=== PATIENT | male | born 1970 | race Caucasian/White ===

== ENCOUNTER 2017-08-16 21:13 | Emergency (ER) | payer MEDICARE ==
[2017-08-16 21:22] VITALS: BP 140/85; PULSE 89; RESP 16; TEMP 97.3
[2017-08-16] MEDS ORDERED: IBUPROFEN 600 MG STARTER PACK 4 TAB BTL PO STA (21:41)
--- NOTE | 2017-08-16 21:48 | ED ---
General Adult HPI - General Chief complaint: Extremity Injury, Upper Stated complaint: wrist pain Time Seen by Provider: 08/16/17 21:21 Source: patient, RN notes reviewed Mode of arrival: ambulatory Limitations: no limitations - History of Present Illness Initial comments: Patient's a 47-year-old male who presents emergency room today with chief complaint of pain to the left wrist. States he woke up this morning discomfort to the left wrist area. Denies any specific injury or trauma. States felt some swollen earlier in the day. He states it has improved but with certain movements still causing him pain. Has not used for the pain other than ice which gave him some improvement. Patient denies any other complaints or symptoms. Denies ever having symptoms similar to this in the past. Denies any history of gout. Patient denies any recent fever, chills, shortness of breath, chest pain, numbness or tingling, headaches or visual changes, or any other complaints. - Related Data Home Medications Medication Instructions Recorded Confirmed Carvedilol 25 mg PO BID 07/05/14 04/05/16 HYDROcodone/APAP 5-325MG [Hendrix 1 tab PO BID PRN 07/05/14 04/05/16 5-325] Testosterone Cypionate 200 mg IM TH 07/05/14 04/05/16 [Depo-Testosterone] cloNIDine HCL [Catapres] 0.2 mg PO BID 07/05/14 04/05/16 Atorvastatin [Lipitor] 10 mg PO HS 10/17/14 04/05/16 Irbesartan 300 mg PO DAILY 03/11/16 04/05/16 Sildenafil Citrate [Sildenafil] 20 mg PO DAILY PRN 03/11/16 04/05/16 cloNIDine HCL [Catapres] 0.1 mg PO DAILY@1200 03/11/16 04/05/16 Aspirin EC [Ecotrin] 325 mg PO DAILY 04/05/16 04/05/16 Chlorthalidone [Hygroten] 50 mg PO DAILY 04/05/16 04/05/16 Spironolactone 50 mg PO DAILY 04/05/16 04/05/16 Previous Rx's Medication Instructions Recorded Ibuprofen [Motrin] 600 mg PO Q6HR PRN #30 day 08/16/17 Allergies Allergy/AdvReac Type Severity Reaction Status Date / Time Iodinated Contrast- Oral and AdvReac Severe Stopped Verified 04/05/16 11:30 IV Dye breathing [Iodinated Contrast Media - IV Dye] Iodine and Iodide Containing AdvReac Unknown Verified 04/05/16 11:30 Produc red dye AdvReac Unknown Verified 04/05/16 11:30 Review of Systems ROS Statement: Those systems with pertinent positive or pertinent negative responses have been documented in the HPI. ROS Other: All systems not noted in ROS Statement are negative. 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 [place] [facility] on 07/05/14 with chest wall syndrome, costalchondritis, atypical chest pain, pancreatitis. History of Any Multi-Drug Resistant Organisms: None Reported Past Surgical History: Cholecystectomy, Tonsillectomy Additional Past Surgical History / Comment(s): bilateral cataract removal with lens implants, R corneal transplant, uvulaectomy, nerve and muscle biopsy, lap band insertion and removal. Additional Past Anesthesia/Blood Transfusion Reaction / Comment(s): Pt states he is slow to awaken after anesthesia and has a severe headache. Past Psychological History: No Psychological Hx Reported Smoking Status: Never smoker Past Alcohol Use History: None Reported Past Drug Use History: None Reported - Past Family History Father Family Medical History: Coronary Artery Disease (CAD), Myocardial Infarction ([place] ) Additional Family Medical History / Comment(s): Father has had many coronary stents. Mother Family Medical History: Coronary Artery Disease (CAD), Myocardial Infarction ([place] ) General Exam - General Exam Comments Initial Comments: General: The patient is awake and alert, in no distress, and does not appear acutely ill. Neck: The neck is supple, there is no tenderness or JVD. Cardiovascular: There is a regular rate and rhythm. No murmur, rub or gallop is appreciated. Respiratory: Lungs are clear to auscultation, respirations are non-labored, breath sounds are equal. No wheezes, stridor, rales, or rhonchi. Musculoskeletal: Normal appearance of the left wrist and hand no deformity swelling or bruising. Shows full range of motion all directions. Surgeon movements of flexion and extension at the left thumb causes pain. Patient does have some tenderness extensor tendon. Sensations are intact. Pulses equal 2+. Strength is 5/5. Neurological: A&O x 3. CN II-XII intact, There are no obvious motor or sensory deficits. Coordination appears grossly intact. Speech is normal. Skin: Skin is warm and dry and no rashes or lesions are noted. Psychiatric: Normal mood and affect. Limitations: no limitations Course Vital Signs 08/16/17 21:19 Temperature 97.3 F L Pulse Rate 89 Respiratory 16 Rate Blood Pressure 140/85 O2 Sat by Pulse 99 Oximetry Medical Decision Making - Medical Decision Making Patient's symptoms are consistent with a tendinitis. He is advised to ice elevate the area and use anti-inflammatories. Will be started on ibuprofen here in emergency room. Disposition Clinical Impression: Left wrist tendinitis Disposition: HOME SELF-CARE Condition: Good Instructions: Tendinitis (ED) Additional Instructions: Please continue to ice elevate the affected area at least 4 times a day for 20 minutes at a time. Please use ibuprofen for pain as prescribed. Please use Harsha wrap for compression. Please do not sleep with Harsha wrap on. Please follow family doctor symptoms persist or return to emergency room symptoms increase worsen Prescriptions: Ibuprofen [Motrin] 600 mg PO Q6HR PRN #30 day PRN Reason: Pain Referrals: Arleth Goetz MD [Primary Care Provider] - 1-2 days Time of Disposition: 21:47
== END 2017-08-16 22:00 | disposition home or self-care (01) ==
LOC: EC 21:13
DX: M77.9 Enthesopathy, unspecified (principal); G60.9 Hereditary and idiopathic neuropathy, unspecified; I10 Essential (primary) hypertension; G47.30 Sleep apnea, unspecified; Z79.899 Other long term (current) drug therapy; Z91.041 Radiographic dye allergy status; Z91.048 Other nonmedicinal substance allergy status; Z99.89 Dependence on other enabling machines and devices
CPT/HCPCS: 99283

== ENCOUNTER 2017-08-24 16:20 | Observation (INO) | payer MEDICARE, OTHER ==
[2017-08-24] MEDS ORDERED: SODIUM CHLORIDE 0.9% 1,000 ML IV STA (16:52)
[2017-08-24] MEDS ORDERED: NITROGLYCERIN SL TABS 0.4 MG TAB SUBLINGUAL PRN ×2 (16:53→18:26)
--- NOTE | 2017-08-24 17:00 | ED ---
General Adult HPI <Darron Pierson - Last Filed: 08/24/17 18:30> - General Source: patient, RN notes reviewed Mode of arrival: wheelchair Limitations: no limitations <Bear De Jesus - Last Filed: 08/24/17 18:53> - General Chief complaint: Shortness of Breath Stated complaint: SOB, Low Blood Pressure Time Seen by Provider: 08/24/17 16:38 - History of Present Illness Initial comments: Patient is a 47-year-old male who presents emergency room today with a chief complaint of shortness breath and chest pain over the last 2 days. Patient is with the symptoms started yesterday. He does admit that he's been expressing some discomfort the left side of the chest that wraps around both right and left or worsen the left side. States that he feels somewhat short of breath at times. His pain comes and goes. Describes it as sharp pain located left side wrapping around to the chest wall. Patient denies anything that seems to make it better or worse. Denies any recent travel. Denies any leg pain or swelling. Patient denies any injury or trauma. Patient denies any recent fever , chills, abdominal pain, nausea or vomiting, numbness or tingling, dysuria or hematuria, constipation or diarrhea, headaches or visual changes, or any other complaints. (Bear De Jesus) - Related Data Home Medications Medication Instructions Recorded Confirmed Testosterone Cypionate 200 mg IM MO 07/05/14 08/24/17 [Depo-Testosterone] Aspirin 81 mg PO DAILY 08/24/17 08/24/17 Azelastine HCl [Optivar 0.05% 2 drop BOTH EYES BID 08/24/17 08/24/17 Ophth Soln] Irbesartan [Avapro] 75 mg PO HS 08/24/17 08/24/17 Spironolactone [Aldactone] 25 mg PO DAILY 08/24/17 08/24/17 Spironolactone [Aldactone] 50 mg PO HS 08/24/17 08/24/17 Allergies Allergy/AdvReac Type Severity Reaction Status Date / Time Iodinated Contrast- Oral and AdvReac Severe Stopped Verified 08/24/17 17:01 IV Dye breathing [Iodinated Contrast Media - IV Dye] Iodine and Iodide Containing AdvReac Unknown Verified 08/24/17 17:01 Produc red dye AdvReac Unknown Verified 08/24/17 17:01 Review of Systems ROS Other: All systems not noted in ROS Statement are negative. <Darron Pierson - Last Filed: 08/24/17 18:30> ROS Other: All systems not noted in ROS Statement are negative. <Bear De Jesus - Last Filed: 08/24/17 18:53> ROS Statement: Those systems with pertinent positive or pertinent negative responses have been documented in the HPI. 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 History of Any Multi-Drug Resistant Organisms: None Reported Past Surgical History: Cholecystectomy, Tonsillectomy Additional Past Surgical History / Comment(s): bilateral cataract removal with lens implants, R corneal transplant, uvulaectomy, nerve and muscle biopsy, lap band insertion and removal. Additional Past Anesthesia/Blood Transfusion Reaction / Comment(s): Pt states he is slow to awaken after anesthesia and has a severe headache. Past Psychological History: No Psychological Hx Reported Smoking Status: Never smoker Past Alcohol Use History: None Reported Past Drug Use History: None Reported - Past Family History Father Family Medical History: Coronary Artery Disease (CAD), Myocardial Infarction ([place] ) Additional Family Medical History / Comment(s): Father has had many coronary stents. Mother Family Medical History: Coronary Artery Disease (CAD), Myocardial Infarction ([place] ) <Bear De Jesus - Last Filed: 08/24/17 18:53> General Exam <Darron Pierson - Last Filed: 08/24/17 18:30> Limitations: no limitations <Bear De Jesus - Last Filed: 08/24/17 18:53> - General Exam Comments Initial Comments: General: The patient is awake and alert, in no distress, and does not appear acutely ill. Eye: Pupils are equal, round and reactive to light, extra-ocular movements are intact. No nystagmus. There is normal conjunctiva bilaterally. No signs of icterus. Ears, nose, mouth and throat: There are moist mucous membranes and no oral lesions. Neck: The neck is supple, there is no tenderness or JVD. Cardiovascular: There is a regular rate and rhythm. No murmur, rub or gallop is appreciated. Respiratory: Lungs are clear to auscultation, respirations are non-labored, breath sounds are equal. No wheezes, stridor, rales, or rhonchi. Musculoskeletal: Normal ROM, no tenderness. Strength 5/5. Sensation intact. Pulses equal bilaterally 2+. Neurological: A&O x 3. CN II-XII intact, There are no obvious motor or sensory deficits. Coordination appears grossly intact. Speech is normal. Skin: Skin is warm and dry and no rashes or lesions are noted. Psychiatric: Cooperative, appropriate mood & affect, normal judgment. (Bear De Jesus) Course <Darron Pierson - Last Filed: 08/24/17 18:30> <Bear De Jesus - Last Filed: 08/24/17 18:53> Vital Signs 08/24/17 08/24/17 16:24 17:33 Temperature 98.0 F 97.7 F Pulse Rate 102 H 89 Respiratory 20 16 Rate Blood Pressure 122/88 140/73 O2 Sat by Pulse 96 96 Oximetry - Reevaluation(s) Reevaluation #1: 08/24/17 18:30 I did personally do a [id number] evaluation patient did discuss findings with him and his . Patient does have some reproducibility to pain on the left but it does not appear to be totally consistent with his presentation. Patient will be admitted for further evaluation of chest pain. He does have a strong family history of the same. He does state he had a cardiac catheterization approximately 20 years ago. (Darron Pierson) EKG Findings - EKG Comments: EKG Findings:: EKG performed at 1637: Shows normal sinus rhythm at 94 bpm. VA interval 138. QRS 110. QT/QTc is 348/435. No acute changes. <Bear De Jesus - Last Filed: 08/24/17 18:53> Medical Decision Making - Lab Data Result diagrams: 08/24/17 17:12 08/24/17 17:12 <Darron Pierson - Last Filed: 08/24/17 18:30> - Lab Data Result diagrams: 08/24/17 17:12 08/24/17 17:12 <Bear De Jesus - Last Filed: 08/24/17 18:53> - Medical Decision Making The patient reexamined at this time shows no signs of distress. Patient's labs been reviewed and negative cardiac enzymes. EKG showing no acute changes. Patient will be admitted to the hospital for serial enzymes and consult from cardiology. Case was discussed with physician Dr. Fernández. (Bear De Jesus) - Lab Data Lab Results 08/24/17 08/24/17 08/24/17 Range/Units 17:12 17:12 17:12 WBC 8.5 (3.8-10.6) k/uL RBC 6.32 H (4.30-5.90) m/uL Hgb 18.0 H (13.0-17.5) gm/dL Hct 50.3 (39.0-53.0) % MCV 79.6 L (80.0-100.0) fL MCH 28.4 (25.0-35.0) pg MCHC 35.7 (31.0-37.0) g/dL RDW 12.7 (11.5-15.5) % Plt Count 209 (150-450) k/uL Neutrophils % 53 % Lymphocytes % 37 % Monocytes % 6 % Eosinophils % 1 % Basophils % 1 % Neutrophils # 4.5 (1.3-7.7) k/uL Lymphocytes # 3.1 (1.0-4.8) k/uL Monocytes # 0.6 (0-1.0) k/uL Eosinophils # 0.1 (0-0.7) k/uL Basophils # 0.1 (0-0.2) k/uL PT (9.0-12.0) sec INR (<1.2) APTT (22.0-30.0) sec D-Dimer (<0.60) mg/L FEU Sodium 139 (137-145) mmol/L Potassium 4.6 (3.5-5.1) mmol/L Chloride 105 (98-107) mmol/L Carbon Dioxide 23 (22-30) mmol/L Anion Gap 11 mmol/L BUN 16 (9-20) mg/dL Creatinine 1.00 (0.66-1.25) mg/dL Est GFR (CKD-EPI)AfAm >90 (>60 ml/min/1.73 sqM) Est GFR (CKD-EPI)NonAf 90 (>60 ml/min/1.73 sqM) Glucose 125 H (74-99) mg/dL Calcium 9.8 (8.4-10.2) mg/dL Magnesium 1.7 (1.6-2.3) mg/dL Total Bilirubin 0.5 (0.2-1.3) mg/dL AST 36 (17-59) U/L ALT 67 (21-72) U/L Alkaline Phosphatase 66 (38-126) U/L Total Creatine Kinase 358 H (55-170) U/L CK-MB (CK-2) 6.2 H* (0.0-2.4) ng/mL CK-MB (CK-2) Rel Index 1.7 Troponin I <0.012 (0.000-0.034) ng/mL NT-Pro-B Natriuret Pep pg/mL Total Protein 7.0 (6.3-8.2) g/dL Albumin 4.1 (3.5-5.0) g/dL 08/24/17 08/24/17 Range/Units 17:12 17:12 WBC (3.8-10.6) k/uL RBC (4.30-5.90) m/uL Hgb (13.0-17.5) gm/dL Hct (39.0-53.0) % MCV (80.0-100.0) fL MCH (25.0-35.0) pg MCHC (31.0-37.0) g/dL RDW (11.5-15.5) % Plt Count (150-450) k/uL Neutrophils % % Lymphocytes % % Monocytes % % Eosinophils % % Basophils % % Neutrophils # (1.3-7.7) k/uL Lymphocytes # (1.0-4.8) k/uL Monocytes # (0-1.0) k/uL Eosinophils # (0-0.7) k/uL Basophils # (0-0.2) k/uL PT 10.0 (9.0-12.0) sec INR 1.0 (<1.2) APTT 22.0 (22.0-30.0) sec D-Dimer 0.30 (<0.60) mg/L FEU Sodium (137-145) mmol/L Potassium (3.5-5.1) mmol/L Chloride (98-107) mmol/L Carbon Dioxide (22-30) mmol/L Anion Gap mmol/L BUN (9-20) mg/dL Creatinine (0.66-1.25) mg/dL Est GFR (CKD-EPI)AfAm (>60 ml/min/1.73 sqM) Est GFR (CKD-EPI)NonAf (>60 ml/min/1.73 sqM) Glucose (74-99) mg/dL Calcium (8.4-10.2) mg/dL Magnesium (1.6-2.3) mg/dL Total Bilirubin (0.2-1.3) mg/dL AST (17-59) U/L ALT (21-72) U/L Alkaline Phosphatase (38-126) U/L Total Creatine Kinase (55-170) U/L CK-MB (CK-2) (0.0-2.4) ng/mL CK-MB (CK-2) Rel Index Troponin I (0.000-0.034) ng/mL NT-Pro-B Natriuret Pep <11 pg/mL Total Protein (6.3-8.2) g/dL Albumin (3.5-5.0) g/dL Disposition <Darron Pierson - Last Filed: 08/24/17 18:30> Time of Disposition: 18:20 <Bear De Jesus - Last Filed: 08/24/17 18:53> Clinical Impression: Chest pain Disposition: ADMITTED IP TO THIS HOSP Condition: Stable
[2017-08-24 17:28] LABS: Basophils # (A) 0.1 k/uL (0-0.2); Basophils % (A) 1 %; Eosinophils # (A) 0.1 k/uL (0-0.7); Eosinophils % (A) 1 %; HCT 50.3 % (39.0-53.0); Lymphocytes # (A) 3.1 k/uL (1.0-4.8); Lymphocytes % (A) 37 %; MCH 28.4 pg (25.0-35.0); MCHC 35.7 g/dL (31.0-37.0); MCV 79.6 fL (80.0-100.0); Mean Platelet Volume 6.8; Monocytes # (A) 0.6 k/uL (0-1.0); Monocytes % (A) 6 %; Neutrophils # (A) 4.5 k/uL (1.3-7.7); Neutrophils % (A) 53 %; Platelet Count 209 k/uL (150-450); RBC 6.32 m/uL (4.30-5.90); RDW 12.7 % (11.5-15.5); WBC 8.5 k/uL (3.8-10.6)
[2017-08-24 17:35] LABS: D-Dimer 0.3 mg/L FEU (<0.60)
[2017-08-24 17:37] LABS: ALT 67 U/L (21-72); AST 36 U/L (17-59); Albumin 4.1 g/dL (3.5-5.0); Alkaline Phosphatase 66 U/L (38-126); Anion Gap 11 mmol/L; Blood Urea Nitrogen 16 mg/dL (9-20); Calcium 9.8 mg/dL (8.4-10.2); Carbon Dioxide 23 mmol/L (22-30); Chloride 105 mmol/L (98-107); Glucose 125 mg/dL (74-99); Magnesium 1.7 mg/dL (1.6-2.3); Potassium 4.6 mmol/L (3.5-5.1); Sodium 139 mmol/L (137-145); Total Bilirubin 0.5 mg/dL (0.2-1.3)
[2017-08-24 17:53] LABS: Creatine Kinase 358 U/L (55-170)
[2017-08-24 18:05] LABS: Troponin I <0.012 ng/mL (0.000-0.034)
--- NOTE | 2017-08-24 18:05 | XR ---
EXAMINATION: XR chest 2V DATE AND TIME: 08/24/2017 5:56 PM ORDERING PROVIDER: Bear De Jesus CLINICAL INDICATION: difficulty breathing TECHNIQUE: PA and lateral COMPARISON: 04/05/2016 DESCRIPTION: The lungs are clear. The pleural spaces are negative. The cardiac silhouette is not enlarged. The mediastinal and pleural silhouettes are unremarkable. The skeletal structures are intact without focal findings. The soft tissues are unremarkable. IMPRESSION: NO ACUTE PROCESS.
[2017-08-24 18:13] LABS: Creatine Kinase MB 6.2 ng/mL (0.0-2.4)
[2017-08-24] MEDS ORDERED: SODIUM CHLORIDE 0.9% 1,000 ML IV ONE (18:26)
[2017-08-24] MEDS ORDERED: ASPIRIN 81 MG PO STA (18:26)
[2017-08-24] MEDS ORDERED: HEPARIN SODIUM,PORCINE 5,000 UNIT/ML 1 ML VIAL IV ONE (18:26)
[2017-08-24] MEDS ORDERED: HEPARIN SOD,PORK IN 0.45% NACL 25,000 UNIT in 0.45% NACL 1 500ML.BAG IV SCH (18:30)
[2017-08-24 20:38] VITALS: BMI 46.0
[2017-08-24] MEDS: LOSARTAN 25 MG TAB PO SCH (23:46)
[2017-08-24] MEDS: SPIRONOLACTONE 25 MG TAB PO SCH (23:47)
[2017-08-25 00:14] LABS: Creatine Kinase 277 U/L (55-170)
[2017-08-25 00:28] LABS: Troponin I <0.012 ng/mL (0.000-0.034)
[2017-08-25 00:30] LABS: Creatine Kinase MB 5.1 ng/mL (0.0-2.4)
[2017-08-25] MEDS ORDERED: HEPARIN SODIUM,PORCINE 5,000 UNIT/ML 1 ML VIAL IV PRN (04:56)
[2017-08-25 07:02] LABS: Cholesterol 133 mg/dL (<200); HDL Cholesterol 30 mg/dL (40-60); LDL Cholesterol,Calculated 53 mg/dL (0-99); Triglycerides 250 mg/dL (<150)
[2017-08-25 07:11] LABS: Creatine Kinase 250 U/L (55-170)
[2017-08-25 07:22] LABS: Troponin I <0.012 ng/mL (0.000-0.034)
--- NOTE | 2017-08-25 09:32 | CONS ---
CONSULTATION CHIEF COMPLAINT: Chest pain. Darron is a 47-year-old gentleman with family history of premature coronary artery disease, who presented to hospital complaining of chest pain. He describes it as a sharp pericardial pain, mild to moderate intensity that has been going on over the last several days. He was concerned, came into the ER from where he got admitted. His chest discomfort has both typical and atypical components to it. Sometimes the chest discomfort gets worse with movement and deep inspiration. He had a D-dimer that is negative. He had 3 sets of troponins that are normal and EKGs that did not reveal ischemia and his lipid profile shows an LDL cholesterol of 53. PAST MEDICAL HISTORY: Significant for hypertension. CURRENT MEDICATIONS: Include Avapro, Aldactone, aspirin, Optivar, and testosterone. ALLERGIC: To IV DYE. FAMILY HISTORY: Significant for premature coronary artery disease. SOCIAL HISTORY: Negative for smoking, EtOH abuse, or drug abuse. REVIEW OF SYSTEMS: HEENT is unremarkable. CARDIAC: As described above. RESPIRATORY: As described above. GI: Negative. GENITOURINARY: Negative. ALLERGY: Negative. SKIN AND MUSCULOSKELETAL: Significant for arthritis. PSYCHOSOCIAL: Negative. ENDOCRINE: Negative. DERM: Negative. CONSTITUTIONAL: Negative. ONCOLOGICAL: Negative. LEGAL JOB TITLES: Negative. Rest of the system review is not relevant. PHYSICAL EXAM: Comfortable at rest. Vital signs are stable. There is no jugular venous distention. Carotid upstroke is normal. There is no bruit. Chest exam reveals good air entry bilaterally. Heart exam reveals first and second heart sounds. No gallop. No murmur. No rub. Abdomen is soft, nontender. Examination of extremities did not reveal any edema. Peripheral pulses are felt. LEGAL JOB TITLES exam did not reveal focal neurological deficits. EKG does not reveal acute ischemic changes. Cardiac enzymes have been negative. The hemoglobin is 18, platelet count is 209. Potassium is 4.6, creatinine is 1. ASSESSMENT: 1. Pericardial chest pain. 2. History of hypertension. PLAN: Myocardial infarction is ruled out. I am going to obtain a 2D echo on him to assess LV function, look at the pericardium in the aortic root and schedule him for a stress echo on Sunday. If this is negative, he will be discharged home. If this is abnormal, we will consider cardiac catheterization on him. MMODL / IJN: [id number] /
[2017-08-25] MEDS: SPIRONOLACTONE 25 MG TAB PO SCH ×2 (09:49→22:21)
[2017-08-25] MEDS: ASPIRIN 325 MG TAB PO SCH (09:49)
--- NOTE | 2017-08-25 11:09 | P.HPIM ---
History of Present Illness 47-year-old gentleman with history of sleep apnea and CVA in the past came in with complaints of chest pain started in the back wraps around the chest area along with the shortness of breath changes with the chest wall movement appears to be mostly musculoskeletal and back related. Patient has some EKG changes concerning for inferior wall myocardial infarction the past because of which cardiology is recommending stress test before his discharge. Patient chest pain has pretty competent because of which d-dimer was opted which was negative patient denied any fever chills cough chest x-ray essentially within normal limits patient is saturating well unsure of the exact etiology of shortness of breath his chest pain was 6/10 which completely resolved at this point of time not associated with food nonexertional nature. Review of Systems REVIEW OF SYSTEMS: CONSTITUTIONAL: No fever, no malaise, no fatigue. HEENT: No recent visual problems or hearing problems. Denied any sore throat. CARDIOVASCULAR: No orthopnea, PND, no palpitations, no syncope. PULMONARY: no cough, no hemoptysis. GASTROINTESTINAL: No diarrhea, no nausea, no vomiting, no abdominal pain. Normoactive bowel sounds. NEUROLOGICAL: No headaches, no weakness, no numbness. HEMATOLOGICAL: Denies any bleeding or petechiae. GENITOURINARY: Denies any burning micturition, frequency, or urgency. MUSCULOSKELETAL/RHEUMATOLOGICAL: Denies any joint pain, swelling, or any muscle pain. ENDOCRINE: Denies any polyuria or polydipsia. The rest of the 14-point review of systems is negative. Past Medical History Past Medical History: CVA/TIA, Hypertension Additional Past Medical History / Comment(s): Other HX: sleep apnea with bipap most nites, hereditary neuropathy with pressure palsey which causes intermittent numbness/tingling/palpitations-a variety of symptoms, 2 TIAs, atypical chest pain, was seen in [facility] ER on 07/05/14 with chest wall syndrome, costalchondritis, atypical chest pain, pancreatitis. History of Any Multi-Drug Resistant Organisms: None Reported Past Surgical History: Cholecystectomy, Tonsillectomy Additional Past Surgical History / Comment(s): bilateral cataract removal with lens implants, R corneal transplant, uvulaectomy, nerve and muscle biopsy, lap band insertion and removal. Additional Past Anesthesia/Blood Transfusion Reaction / Comment(s): Pt states he is slow to awaken after anesthesia and has a severe headache. Past Psychological History: No Psychological Hx Reported Additional Psychological History / Comment(s): Pt lives with and children. He is normally independent. Depending on the day he may need to use a cane. He drives a car. Smoking Status: Never smoker Past Alcohol Use History: None Reported Past Drug Use History: None Reported - Past Family History Father Family Medical History: Coronary Artery Disease (CAD), Myocardial Infarction (AL ) Additional Family Medical History / Comment(s): Father has had many coronary stents. Mother Family Medical History: Coronary Artery Disease (CAD), Myocardial Infarction (AL ) Medications and Allergies Home Medications Medication Instructions Recorded Confirmed Type Testosterone Cypionate 200 mg IM MO 07/05/14 08/24/17 History [Depo-Testosterone] Aspirin 81 mg PO DAILY 08/24/17 08/24/17 History Azelastine HCl [Optivar 0.05% 2 drop BOTH EYES BID 08/24/17 08/24/17 History Ophth Soln] Irbesartan [Avapro] 75 mg PO HS 08/24/17 08/24/17 History Spironolactone [Aldactone] 25 mg PO DAILY 08/24/17 08/24/17 History Spironolactone [Aldactone] 50 mg PO HS 08/24/17 08/24/17 History Allergies Allergy/AdvReac Type Severity Reaction Status Date / Time Iodinated Contrast- Oral and AdvReac Severe Stopped Verified 08/24/17 17:01 IV Dye breathing [Iodinated Contrast Media - IV Dye] Iodine and Iodide Containing AdvReac Unknown Verified 08/24/17 17:01 Produc red dye AdvReac Unknown Verified 08/24/17 17:01 Physical Exam Vitals: Vital Signs Temp Pulse Pulse Resp BP BP Pulse Ox 08/25/17 08:00 97.9 F 80 16 125/77 97 08/25/17 04:00 98.7 F 77 18 132/80 94 L 08/25/17 00:00 98.5 F 80 18 129/73 95 08/24/17 20:06 98.4 F 81 18 140/79 94 L 08/24/17 19:40 98.2 F 08/24/17 19:23 80 18 122/65 98 08/24/17 19:11 62 16 133/75 96 08/24/17 17:33 97.7 F 89 16 140/73 96 08/24/17 16:24 98.0 F 102 H 20 122/88 96 Intake and Output 08/24/17 08/25/17 08/25/17 22:59 06:59 14:59 Intake Total 117.667 Balance 117.667 Intake: Intake, IV Titration 117.667 Amount Heparin Sod,Pork in 0.45% 117.667 NaCl 25,000 unit In 0.45 % NaCl 1 500ml.bag @ 6. 681 UNITS/KG/HR 20 mls/hr IV .Q24H [facility] Rx#: [id number] Other: Voiding Method Toilet Toilet # Voids 1 1 Weight 149.685 kg 149.685 kg PHYSICAL EXAMINATION: GENERAL: The patient is alert and oriented x3, not in any acute distress. Well developed, well nourished. Obese HEENT: Pupils are round and equally reacting to light. EOMI. No scleral icterus. No conjunctival pallor. Normocephalic, atraumatic. No pharyngeal erythema. No thyromegaly. CARDIOVASCULAR: S1 and S2 present. No murmurs, rubs, or gallops. PULMONARY: Chest is clear to auscultation, no wheezing or crackles. ABDOMEN: Soft, nontender, nondistended, normoactive bowel sounds. No palpable organomegaly. MUSCULOSKELETAL: No joint swelling or deformity. EXTREMITIES: No cyanosis, clubbing, or pedal edema. NEUROLOGICAL: Gross neurological examination did not reveal any focal deficits. SKIN: No rashes. Results CBC & Chem 7: 08/24/17 17:12 08/24/17 17:12 Labs: Abnormal Lab Results - Last 24 Hours (Table) 08/24/17 08/24/17 08/24/17 Range/Units 17:12 17:12 17:12 RBC 6.32 H (4.30-5.90) m/uL Hgb 18.0 H (13.0-17.5) gm/dL MCV 79.6 L (80.0-100.0) fL Glucose 125 H (74-99) mg/dL Total Creatine Kinase 358 H (55-170) U/L CK-MB (CK-2) 6.2 H* (0.0-2.4) ng/mL Triglycerides (<150) mg/dL HDL Cholesterol (40-60) mg/dL 08/24/17 08/25/17 08/25/17 Range/Units 23:44 06:14 06:14 RBC (4.30-5.90) m/uL Hgb (13.0-17.5) gm/dL MCV (80.0-100.0) fL Glucose (74-99) mg/dL Total Creatine Kinase 277 H 250 H (55-170) U/L CK-MB (CK-2) 5.1 H* 5.0 H* (0.0-2.4) ng/mL Triglycerides 250 H (<150) mg/dL HDL Cholesterol 30 L (40-60) mg/dL Thrombosis Risk Factor Assmnt - Choose All That Apply Each Factor Represents 1 point: Age 41-60 years, Obesity (BMI >25) Thrombosis Risk Factor Assessment Total Risk Factor Score: 2 Thrombosis Risk Factor Assessment Level: Low Risk Assessment and Plan Plan: -Chest pain: Rule out acute coronary syndromes patient will need to undergo stress test on Sunday as recommended by cardiology. Mostly appears to be musculoskeletal in nature -Shortness of breath: Etiology is unknown may be related to his sleep apnea although patient does use CPAP machine history and is up with resolved at this point of time. Patient may have significant restrictive lung disease from his obesity. -Hypertension -Elevated hematocrit secondary to the testosterone supplementation. -History of CVA in the past
--- NOTE | 2017-08-25 13:34 | ECHOF ---
Referral Reason:chest pain MEASUREMENTS -------- HEIGHT: 180.3 cm WEIGHT: 149.7 kg BP: 125/77 RVIDd: 3.5 cm (< 3.3) IVSd: 1.5 cm (0.6 - 1.1) LVIDd: 5.3 cm (3.9 - 5.3) LVPWd: 1.4 cm (0.6 - 1.1) IVSs: 2.0 cm LVIDs: 4.0 cm LVPWs: 2.1 cm LA Diam: 4.3 cm (2.7 - 3.8) LAESV Index (A-L): 23.73 ml/m Ao Diam: 3.2 cm (2.0 - 3.7) AV Cusp: 2.3 cm (1.5 - 2.6) MV EXCURSION: 18.742 mm (> 18.000) MV EF SLOPE: 59 mm/s (70 - 150) EPSS: 1.0 cm MV E Anish: 0.71 m/s MV DecT: 330 ms MV A Anish: 0.85 m/s MV E/A Ratio: 0.84 FINDINGS -------- Sinus rhythm. This was a technically adequate study. The left ventricular size is normal. There is moderate concentric left ventricular hypertrophy. O verall left ventricular systolic function is low-normal with, an EF between 50 - 55 %. The right ventricle is mildly enlarged. The left atrium is mildly dilated. The right atrium is normal in size. The aortic valve is trileaflet and appears structurally normal. Mild mitral annular calcification present. There is trace mitral regurgitation. The tricuspid valve appears structurally normal. Trace/mild (physiologic) pulmonic regurgitation. The aortic root size is normal. IVC Not well visulized. There is no pericardial effusion. CONCLUSIONS -------- 1. Sinus rhythm. 2. This was a technically adequate study. 3. The left ventricular size is normal. 4. There is moderate concentric left ventricular hypertrophy. 5. Overall left ventricular systolic function is low-normal with, an EF between 50 - 55 %. 6. The right ventricle is mildly enlarged. 7. The left atrium is mildly dilated. 8. The right atrium is normal in size. 9. The aortic valve is trileaflet and appears structurally normal. 10. Mild mitral annular calcification present. 11. There is trace mitral regurgitation. 12. The tricuspid valve appears structurally normal. 13. Trace/mild (physiologic) pulmonic regurgitation. 14. The aortic root size is normal. 15. IVC Not well visulized. 16. There is no pericardial effusion. TYPESETTING MACHINE OPERATOR/TENDER: Sofia Salinas RDCS
[2017-08-25] MEDS: LOSARTAN 25 MG TAB PO SCH (22:21)
[2017-08-26] MEDS: ASPIRIN 325 MG TAB PO SCH (09:31)
[2017-08-26] MEDS: SPIRONOLACTONE 25 MG TAB PO SCH ×3 (09:31→21:56)
--- NOTE | 2017-08-26 12:22 | P.PN ---
Subjective Progress Note Date: 08/26/17 Mr. Kerr is seen and examined this morning. He is resting comfortably in bed in no acute distress. Echocardiogram performed yesterday reveals preserved left ventricular systolic function with ejection fraction of 50-55%, moderate concentric left ventricular hypertrophy with no evidence of valvular heart disease. He complains of having symptoms of chest pain last night around 9 PM. This lasted for only a couple of minutes and resolved on its own. Telemetry tracings have been unremarkable. Blood pressure 144/80 heart rate 92 afebrile maintaining oxygen saturation on room air. Objective - Vital Signs Vital signs: Vital Signs Temp 98.6 F 08/26/17 08:00 Pulse 92 08/26/17 08:00 Resp 18 08/26/17 08:00 BP 144/80 08/26/17 08:00 Pulse Ox 96 08/26/17 08:00 Intake & Output 08/25/17 08/26/17 08/26/17 18:59 06:59 18:59 Weight 149.685 kg Other: Voiding Method Toilet Toilet Toilet # Voids 1 - Exam GENERAL: Well-appearing, well-nourished and in no acute distress. NECK: Supple without JVD or thyromegaly. LUNGS: Breath sounds clear to auscultation bilaterally. Respiration equal and unlabored. No wheezes, rales or rhonchi. HEART: Regular rate and rhythm without murmurs, rubs or gallops. S1 and S2 heard. EXTREMITIES: Normal range of motion, no edema. No clubbing or cyanosis. Peripheral pulses intact and strong. - Labs CBC & Chem 7: 08/24/17 17:12 08/24/17 17:12 Assessment and Plan Assessment: ASSESSMENT 1. Precordial chest pain, acute coronary event has been ruled out with no EKG evidence of ischemia and negative cardiac enzymes. 2. Hypertension PLAN He will be nothing by mouth after midnight for stress echocardiogram in the morning. Further recommendations will be based upon diagnostic tests findings. If the stress of sick negative he is stable from a cardiac perspective. The above impression and plan of care have been discussed and directed by the signing physician. Juliette Rodriguez, nurse practitioner, acting as scribe for signing physician.
--- NOTE | 2017-08-26 15:04 | P.PN ---
Subjective 47-year-old came in with compensative chest pain awaiting stress test tomorrow. Patient had an episode of chest pain last night. Constitutional: Denied any fatigue denied any fever. Cardio vascular: denied any palpitations Gastrointestinal denied any nausea vomiting Pulmonary: Denied any shortness of breath cough Neurologic denied any new focal deficits Objective - Vital Signs Vital signs: Vital Signs Temp 97.9 F 08/26/17 12:00 Pulse 91 08/26/17 12:00 Resp 18 08/26/17 12:00 BP 156/86 08/26/17 12:00 Pulse Ox 96 08/26/17 12:00 Intake & Output 08/25/17 08/26/17 08/26/17 18:59 06:59 18:59 Weight 149.685 kg Other: Voiding Method Toilet Toilet Toilet # Voids 1 - Exam GENERAL: The patient is alert and oriented x3, not in any acute distress. Well developed, well nourished. Obese HEENT: Pupils are round and equally reacting to light. EOMI. No scleral icterus. No conjunctival pallor. Normocephalic, atraumatic. No pharyngeal erythema. No thyromegaly. CARDIOVASCULAR: S1 and S2 present. No murmurs, rubs, or gallops. PULMONARY: Chest is clear to auscultation, no wheezing or crackles. ABDOMEN: Soft, nontender, nondistended, normoactive bowel sounds. No palpable organomegaly. MUSCULOSKELETAL: No joint swelling or deformity. EXTREMITIES: No cyanosis, clubbing, or pedal edema. NEUROLOGICAL: Gross neurological examination did not reveal any focal deficits. SKIN: No rashes - Labs CBC & Chem 7: 08/24/17 17:12 08/24/17 17:12 Assessment and Plan Plan: -Chest pain: Rule out acute coronary syndromes patient will need to undergo stress test on Sunday as recommended by cardiology. Mostly appears to be musculoskeletal in nature -Shortness of breath: Etiology is unknown may be related to his sleep apnea although patient does use CPAP machine history and is up with resolved at this point of time. Patient may have significant restrictive lung disease from his obesity. -Hypertension -Elevated hematocrit secondary to the testosterone supplementation. -History of CVA in the past
[2017-08-26] MEDS ORDERED: ACETAMINOPHEN TAB 325 MG TAB PO PRN (16:07)
[2017-08-26] MEDS: LOSARTAN 25 MG TAB PO SCH (21:54)
--- NOTE | 2017-08-27 10:03 | P.PN ---
Subjective Progress Note Date: 08/27/17 Mr. Kerr is seen and examined this morning. He is resting comfortably in bed in no acute distress. Echocardiogram performed yesterday reveals preserved left ventricular systolic function with ejection fraction of 50-55%, moderate concentric left ventricular hypertrophy with no evidence of valvular heart disease. He complains of having symptoms of chest pain last night around 9 PM. This lasted for only a couple of minutes and resolved on its own. Telemetry tracings have been unremarkable. Blood pressure 144/80 heart rate 92 afebrile maintaining oxygen saturation on room air. 08/27/2017 Mr. Melton has had no further symptoms of chest pain. Telemetry tracings have been unremarkable. Blood pressure this morning 138/95 heart rate 88 afebrile and maintaining oxygen saturations on room air. Objective - Vital Signs Vital signs: Vital Signs Temp 98.1 F 08/27/17 07:54 Pulse 88 08/27/17 07:54 Resp 18 08/27/17 07:54 BP 138/95 08/27/17 07:54 Pulse Ox 95 08/27/17 07:54 Intake & Output 08/26/17 08/27/17 08/27/17 18:59 06:59 18:59 Weight 149.685 kg Other: Voiding Method Toilet Toilet Toilet # Voids 1 - Exam GENERAL: Well-appearing, well-nourished and in no acute distress. NECK: Supple without JVD or thyromegaly. LUNGS: Breath sounds clear to auscultation bilaterally. Respiration equal and unlabored. No wheezes, rales or rhonchi. HEART: Regular rate and rhythm without murmurs, rubs or gallops. S1 and S2 heard. EXTREMITIES: Normal range of motion, no edema. No clubbing or cyanosis. Peripheral pulses intact and strong. - Labs CBC & Chem 7: 08/24/17 17:12 08/24/17 17:12 Assessment and Plan Assessment: ASSESSMENT 1. Precordial chest pain, acute coronary event has been ruled out with no EKG evidence of ischemia and negative cardiac enzymes. 2. Hypertension PLAN Proceed with stress echocardiogram as was previously ordered. If above test is negative he is stable from a cardiac perspective. Follow-up with Dr. Allen in 2-3 weeks. The above impression and plan of care have been discussed and directed by the signing physician. Juliette Rodriguez, nurse practitioner, acting as scribe for signing physician.
[2017-08-27] MEDS: SPIRONOLACTONE 25 MG TAB PO SCH (12:03)
[2017-08-27 12:21] VITALS: RESP 16
[2017-08-27 12:24] VITALS: BP 149/96; PULSE 118; TEMP 99.8
[2017-08-27] MEDS: ASPIRIN 325 MG TAB PO SCH (12:41)
[2017-08-27] MEDS ORDERED: METOPROLOL TARTRATE 25 MG TAB PO SCH (13:15)
--- NOTE | 2017-08-27 13:37 | ECHOS ---
STRESS ECHOCARDIOGRAM DATE OF SERVICE: 08/27/2017 INDICATIONS: Chest pain. MEDICATIONS: BASELINE HEART RATE: 99 BASELINE BLOOD PRESSURE: 150/80 MAXIMUM HEART RATE: 167 MAXIMUM BLOOD PRESSURE: 203/103 85% MPHR: 145 100% MPHR: 174 METS: 7.1 MAXIMUM STAGE REACHED: III TOTAL EXERCISE TIME: 8 minutes. CLINICAL INFORMATION: Baseline EKG revealed sinus mechanism with poor R-wave progression over precordial leads. He walked on a standard Jerald protocol for 8 minutes, achieved a maximal heart rate of 167 beats per minute. He developed fatigue and shortness of breath but did not have angina. The EKG as he exercised continued to show some QRS widening related to the rate. He also had frequent ventricular ectopy, some of them in the form of couplets. At about nearly 7 minutes of exercise, he had what seems to be a wide QRS rhythm, but on reviewing it, this seems to be a rate-related bundle branch block at a rate of nearly 150 beats per minute. As the heart rate came back to the 140s, his QRS narrowed. The patient did have ventricular ectopy. No symptoms were reported. He also has a rate-related QRS widening as well and some PACs. However, there are no ST- segment changes to indicate ischemia when the QRS was narrow. This is a negative stress test by EKG criteria with a rate-related QRS widening, some of which appears like a wide QRS tachycardia, but it appears to be an underlying sinus mechanism with widening of QRS. The EKG part of the stress test therefore is normal without ischemia with evidence of isolated PVCs. Baseline echo images revealed normal wall motion and wall thickening of all segments. The stress images were visualized with Definity. There was good augmentation of left ventricular wall motion and wall thickening of all segments. There was no evidence to suggest any stress-induced ischemia on this stress echocardiogram. FINAL IMPRESSION: 1. By EKG criteria, this is a negative stress test without evidence of ischemia. There is evidence of isolated ventricular ectopy and rate-related QRS widening. 2. Normal stress echocardiogram. 3. Results were discussed with Dr. Allen. MMMEKAL / IJN: [id number] /
--- NOTE | 2017-08-27 15:41 | P.DS ---
Providers Date of admission: 08/24/17 18:30 Attending physician: Subha Fernández Consults: 08/24/17 18:26 Consult Physician Stat Consulting Provider: [facility] Consult Reason/Comments: chest pain Do you want consulting provider notified?: Yes Primary care physician: Arleth Goetz [facility] Course: Patient was admitted for chest pain patient underwent stress test which did not show any inducible ischemia but had PVCs because of which oral communication instructor recommending metoprolol and prescription was provided for metoprolol patient is being discharged in stable medical condition to home. Etiology of chest pain is probably musculoskeletal in nature. For rest of the other chronic medical problems hospitalization course please refer to my progress note from as today. Patient Condition at Discharge: Stable Plan - Discharge Summary New Discharge Prescriptions: New Metoprolol Tartrate [Lopressor] 25 mg PO BID #60 tab No Action Testosterone Cypionate [Depo-Testosterone] 200 mg IM MO Irbesartan [Avapro] 75 mg PO HS Spironolactone [Aldactone] 50 mg PO HS Spironolactone [Aldactone] 25 mg PO DAILY Azelastine HCl [Optivar 0.05% Ophth Soln] 2 drop BOTH EYES BID Aspirin 81 mg PO DAILY Discharge Medication List Testosterone Cypionate [Depo-Testosterone] 200 mg IM MO 07/05/14 [History] Aspirin 81 mg PO DAILY 08/24/17 [History] Azelastine HCl [Optivar 0.05% Ophth Soln] 2 drop BOTH EYES BID 08/24/17 [History ] Irbesartan [Avapro] 75 mg PO HS 08/24/17 [History] Spironolactone [Aldactone] 25 mg PO DAILY 08/24/17 [History] Spironolactone [Aldactone] 50 mg PO HS 08/24/17 [History] Metoprolol Tartrate [Lopressor] 25 mg PO BID #60 tab 08/27/17 [Rx] Follow up Appointment(s)/Referral(s): Jama Allen MD [STAFF PHYSICIAN] - 3 Weeks (office will call patient with appointment date and time) Arleth Goetz MD [Primary Care Provider] - 3 Days Patient Instructions/Handouts: Chest Pain (DC) Discharge Disposition: HOME SELF-CARE
[2017-08-28] MEDS ORDERED: ASPIRIN 81 MG PO SCH (09:00)
== END 2017-08-27 15:48 | disposition home or self-care (01) ==
LOC: EC 16:20 → 3OBS 18:30
PROVIDERS: ADMIT Hospitalist; ATTEND Hospitalist
DX: R07.89 Other chest pain (principal); R06.02 Shortness of breath; I49.3 Ventricular premature depolarization; I10 Essential (primary) hypertension; R71.8 Other abnormality of red blood cells; T38.7X5A Adverse effect of androgens and anabolic congeners, initial encounter; G47.30 Sleep apnea, unspecified; G83.9 Paralytic syndrome, unspecified; E66.9 Obesity, unspecified; Z68.42 Body mass index [BMI] 45.0-49.9, adult; G60.9 Hereditary and idiopathic neuropathy, unspecified; Z99.89 Dependence on other enabling machines and devices; Z94.7 Corneal transplant status; Z98.84 Bariatric surgery status; Z79.82 Long term (current) use of aspirin; Z91.041 Radiographic dye allergy status; Z91.048 Other nonmedicinal substance allergy status; Z86.73 Personal history of transient ischemic attack (TIA), and cerebral infarction without residual deficits; Z87.19 Personal history of other diseases of the digestive system; Z82.49 Family history of ischemic heart disease and other diseases of the circulatory system
CPT/HCPCS: 99285 ×2; 96365 ×2; 96376 ×2; 96361 ×2; 96366 ×2; 36415; 93005; 93017; 93306; 85379; 83880; 80061; 80053; 84443; 82550 ×2; 82553 ×2; 83735; 84484 ×2; 85025; 85610; 85730 ×2; 71046; G0378 ×4; C8928; J1644 ×2; Q9950; 93350

== ENCOUNTER → 2018-03-29 | Day surgery (SDC) | payer MEDICARE, OTHER ==
[2018-03-25 10:26] VITALS: BMI 48.8
[~2018-03-29] MED LIST: BUPIVACAIN-EPI 0.25%-1:200,000 30 ML VIAL SQ ONE; DEXAMETHASONE SOD PHOS (MDV) 100 MG/10 ML VIAL ONE; DEXAMETHASONE SOD PHOSPHATE 10 MG/ML 1 ML VIAL IV ONE; GLYCOPYRROLATE 0.2 MG/ML 2 ML VIAL ONE; HYDROcodone/APAP 5-325MG 1 EACH TAB PO PRN; HYDROmorphone 1 MG/ML 1 ML SYRINGE IVP PRN; LACTATED RINGERS 1,000 ML IV ONE; LACTATED RINGERS 1,000 ML IV SCH; LIDOCAINE 1% 20 ML VIAL (10MG/ML) FOR IV START INTRADERMA ONE; LIDOCAINE 1% INJ 10MG/ML (20 ML MDV) ONE; MIDAZOLAM 2 MG/2 ML VIAL IV PRN; MIDAZOLAM 2 MG/2 ML VIAL ONE; NALOXONE 0.4 MG/ML 1 ML VIAL IV PRN; NEOSTIGMINE 1 MG/ML 10 ML VIAL ONE; ONDANSETRON 4 MG/2 ML VIAL IVP ONE; PROPOFOL 10 MG/ML 20 ML VIAL IV ONE; ROCURONIUM BROMIDE 10 MG/ML 10 ML VIAL IV ONE; SCOPOLAMINE 1.5MG/72HR PATCH TRANSDERM ONE; fentaNYL (PF) 50 MCG/ML 2 ML AMP ONE
[2018-03-29 15:02] VITALS: TEMP 97.9
--- NOTE | 2018-03-29 15:05 | P.OP ---
Date of Procedure: 03/29/18 Procedure(s) Performed: PREOPERATIVE DIAGNOSIS: Left chest wall mass POSTOPERATIVE DIAGNOSIS: Same PROCEDURE: Excision left chest wall mass SURGEON: Tarah EBL: Minimal ANESTHESIA: General COMPLICATIONS: None OPERATIVE PROCEDURE: Patient place in the operating table in the supine position. The patient was placed under general anesthesia. The left chest wall was prepped and draped in usual sterile fashion. The skin was localized. A horizontal incision was made. The subcutaneous tissues were divided using electrocautery. A large lipomatous mass was identified just anterior to the fascia. This was excised using primarily blunt dissection. This measured 8 x 8 x 3 cm. This was sent to pathology. No bleeding was seen. Subcutaneous tissues closed using 3-0 Vicryl sutures. Skin was closed using 4-0 Monocryl sutures. Skin glue was utilized. DISPOSITION: Stable to recovery room
[2018-03-29 15:11] VITALS: RESP 16
[2018-03-29 15:52] VITALS: BP 110/61; PULSE 82
== END ==
LOC: OR 09:51
PROVIDERS: ATTEND Surgery
DX: D17.1 Benign lipomatous neoplasm of skin and subcutaneous tissue of trunk (principal); I10 Essential (primary) hypertension; G47.33 Obstructive sleep apnea (adult) (pediatric); G62.9 Polyneuropathy, unspecified; E66.01 Morbid (severe) obesity due to excess calories; Z68.42 Body mass index [BMI] 45.0-49.9, adult; Z79.2 Long term (current) use of antibiotics; Z79.52 Long term (current) use of systemic steroids; Z79.899 Other long term (current) drug therapy; Z79.82 Long term (current) use of aspirin; Z91.09 Other allergy status, other than to drugs and biological substances; Z86.73 Personal history of transient ischemic attack (TIA), and cerebral infarction without residual deficits; Z80.3 Family history of malignant neoplasm of breast
CPT/HCPCS: 88304; 84132; 21552; J2250; J1100 ×2; J2710; J0690; J2405; J2001; J3010; J2704

== ENCOUNTER → 2019-01-20 | Outpatient (CLI) | payer MEDICARE, OTHER ==
--- NOTE | 2019-01-20 12:15 | US ---
EXAMINATION TYPE: US liver DATE OF EXAM: 01/20/2019 COMPARISON: NONE CLINICAL HISTORY: R94.5 Abnormal LFT. EXAM MEASUREMENTS: Liver Length: 17.6cm Gallbladder Wall: 0.3m CBD: 0.4 cm Right Kidney: 9.6 x 5.5 x 5.0cm Morbidly obese patient, technically difficult study. Pancreas: Obscured by bowel gas Liver: Increased attenuation, decreased visualization of vessels suggestive of fatty infiltrate Gallbladder: Surgically absent Evidence for sonographic Dunham's sign: no CBD: wnl Right Kidney: wnl IMPRESSION: Hepatic steatosis.
== END | disposition home or self-care (01) ==
LOC: RADUSWWP 11:42
PROVIDERS: ATTEND Internal Medicine
DX: K76.0 Fatty (change of) liver, not elsewhere classified (principal)
CPT/HCPCS: 76705

== ENCOUNTER → 2022-05-12 | Outpatient (CLI) | payer MEDICARE, OTHER ==
--- NOTE | 2022-05-12 15:37 | MR ---
EXAMINATION TYPE: MR knee LT wo con DATE OF EXAM: 05/12/2022 COMPARISON: NONE HISTORY: Left knee pain and swelling. TECHNIQUE: Multiplanar, multisequence images of the knee is performed without IV contrast. FINDINGS: MEDIAL MENISCUS: Oblique signal posterior horn May extend to inferior articular surface sagittal imag es 28 and 29. LATERAL MENISCUS: Anterior and posterior horns are intact without tear. CRUCIATE LIGAMENTS: The anterior and posterior cruciate ligaments are intact and unremarkable. COLLATERAL LIGAMENTS: The medial collateral ligament and lateral collateral ligament complex are inta ct and unremarkable. EXTENSOR MECHANISM: Visualized quadriceps and patellar tendons are intact. EFFUSION: No significant suprapatellar joint effusion. POPLITEAL CYST: Tiny popliteal/padgett cyst. TRICOMPARTMENT SPACES: Mild tricompartment joint space loss and spurring. CARTILAGE: Some chondromalacia patella with fissuring along posterior patellar pole sagittal image 15 for reference. Mild cartilaginous loss medial tibiofemoral compartment. BONE MARROW SIGNAL: No focal abnormal marrow signal is appreciated. OTHER: Prominent anterior medial subcutaneous vessel possible varicose vein. IMPRESSION: 1. At least intrasubstance suspected full-thickness tear posterior horn medial meniscus. 2. Mild to moderate tricompartment degenerative changes greatest patellofemoral compartment as detail ed above. 3. Tiny popliteal cyst.
== END | disposition home or self-care (01) ==
LOC: RADMRIMAIN 14:10
PROVIDERS: ATTEND Orthopaedic Surgery
DX: M17.12 Unilateral primary osteoarthritis, left knee (principal); M71.22 Synovial cyst of popliteal space [Baker], left knee

== ENCOUNTER → 2022-05-29 | Outpatient (CLI) | payer MEDICARE, OTHER | END | disposition home or self-care (01) | LOC: LABPAT 12:07 | PROVIDERS: ATTEND Orthopaedic Surgery | DX: Z53.9 Procedure and treatment not carried out, unspecified reason (principal) ==

== ENCOUNTER → 2022-05-29 | Outpatient (CLI) | payer MEDICARE, OTHER ==
[2022-05-29 18:26] LABS: Basophils # (A) 0.03 X 10*3/uL (0.00-0.10); Basophils % (A) 0.4 %; Eosinophils # (A) 0.09 X 10*3/uL (0.04-0.35); Eosinophils % (A) 1.1 %; HGB 14.1 g/dL (13.0-17.0); Lymphocytes # (A) 3.27 X 10*3/uL (0.90-5.00); Lymphocytes % (A) 39.3 %; MCH 27.9 pg (27.0-32.0); MCHC 33.6 g/dL (32.0-37.0); MCV 83.2 fL (80.0-97.0); Mean Platelet Volume 9.8 fL (9.5-12.2); Monocytes # (A) 0.61 X 10*3/uL (0.20-1.00); Monocytes % (A) 7.3 %; NRBC Per 100 WBC 0 /100 WBCS (0.0-0.0); Neutrophils # (A) 4.25 X 10*3/uL (1.80-7.70); Neutrophils % (A) 50.9 %; Platelet Count 232 X 10*3/uL (140-440); RBC 5.05 X 10*6/uL (4.40-5.60); RDW 12.7 % (11.5-14.5); WBC 8.33 X 10*3/uL (4.50-10.00)
[2022-05-29 19:02] LABS: African American GFR (CKD) 69.2 (60.0-200.0); Albumin/Globulin Ratio 1.76 (1.60-3.17); Anion Gap 9.9 mmol/L (10.00-18.00); BUN/Creat Ratio 15.26 Ratio (12.00-20.00); Blood Urea Nitrogen 20.9 mg/dL (9.0-27.0); Calcium 9.4 mg/dL (8.7-10.3); Carbon Dioxide 22.8 mmol/L (20.0-27.5); Globulin 2.3 g/dL (1.6-3.3); Non-African American GFR(CKD) 59.7 (60.0-200.0); Potassium 5.1 mmol/L (3.5-5.5); Total Bilirubin 0.3 mg/dL (0.30-1.20); Total Protein 6.3 g/dL (6.2-8.2)
== END | disposition home or self-care (01) ==
LOC: LABWHC1 12:11
PROVIDERS: ATTEND Internal Medicine Gastroenterology
DX: K76.0 Fatty (change of) liver, not elsewhere classified (principal)
CPT/HCPCS: 36415; 80053; 85025

== ENCOUNTER 2022-05-31 11:15 | Day surgery (SDC) | payer MEDICARE, OTHER ==
[2022-05-29 11:07] VITALS: BMI 45.9
--- NOTE | 2022-05-30 13:29 | HP ---
HISTORY AND PHYSICAL DATE OF SURGERY: 05/31/2022 HISTORY OF PRESENT ILLNESS: Darron Melton is a 51-year-old patient who is seen for progressive left knee pain. Options for treatment were discussed with him, he elected to proceed with left knee arthroscopy. Consent was obtained. PAST MEDICAL HISTORY: Hypertension, hyperlipidemia, gastroesophageal reflux disease, [id number] diabetes. SURGICAL HISTORY: Cataract surgery, cholecystectomy, eye surgery, and lap band surgery. DAILY MEDICATIONS: 1. Spironolactone. 2. Jardiance. 3. Omeprazole. 4. Rosuvastatin. ALLERGIES: IVP dye. SOCIAL HISTORY: He denies tobacco use. PHYSICAL EVALUATION OF THE LEFT KNEE: His range of motion is 0-130. He is tender along the medial joint line with positive medial Nadine's. Ligaments are stable. Hip rotation is without pain. His distal neurovascular exam is intact. RADIOGRAPHS: Radiographs of the left knee revealed mild osteoarthritis. MRI left knee revealed a medial meniscal tear as well as osteoarthritic changes. IMPRESSION: 1. Internal derangement of left knee with medial meniscal tear. 2. Hypertension. 3. Hyperlipidemia. 4. [id number] diabetes. PLAN: Left knee arthroscopy with partial medial meniscectomy and debridement. MMODL / IJN: [id number] /
[~2022-05-31 11:15] MED LIST changes: -BUPIVACAIN-EPI 0.25%-1:200,000 30 ML VIAL SQ ONE; -DEXAMETHASONE SOD PHOS (MDV) 100 MG/10 ML VIAL ONE; -DEXAMETHASONE SOD PHOSPHATE 10 MG/ML 1 ML VIAL IV ONE; +DEXAMETHASONE SOD PHOSPHATE 4 MG/ML 1 ML VIAL IV ONE; -GLYCOPYRROLATE 0.2 MG/ML 2 ML VIAL ONE; -HYDROcodone/APAP 5-325MG 1 EACH TAB PO PRN; +HYDROmorphone 0.5 MG/0.5 ML SYRINGE IVP PRN; -HYDROmorphone 1 MG/ML 1 ML SYRINGE IVP PRN; -LACTATED RINGERS 1,000 ML IV ONE; -LACTATED RINGERS 1,000 ML IV SCH; +LIDOCAINE 1% (10MG/ML) FOR IV START INTRADERMA PRN; -LIDOCAINE 1% 20 ML VIAL (10MG/ML) FOR IV START INTRADERMA ONE; -LIDOCAINE 1% INJ 10MG/ML (20 ML MDV) ONE; -MIDAZOLAM 2 MG/2 ML VIAL IV PRN; -MIDAZOLAM 2 MG/2 ML VIAL ONE; -NALOXONE 0.4 MG/ML 1 ML VIAL IV PRN; -NEOSTIGMINE 1 MG/ML 10 ML VIAL ONE; -PROPOFOL 10 MG/ML 20 ML VIAL IV ONE; -ROCURONIUM BROMIDE 10 MG/ML 10 ML VIAL IV ONE; +SCOPOLAMINE 1 MG/72 HR PATCH TRANSDERM ONE; -SCOPOLAMINE 1.5MG/72HR PATCH TRANSDERM ONE; +ceFAZolin 3 GM in SODIUM CHLORIDE 0.9% 100 ML IVPB PRN; -fentaNYL (PF) 50 MCG/ML 2 ML AMP ONE
[2022-05-31] MEDS: LACTATED RINGERS 1,000 ML IV SCH ×2 (12:07→14:52)
[2022-05-31 12:09] LABS: Glucose,Whole Blood 133 mg/dL (70-110)
[2022-05-31] MEDS ORDERED: BUPIVACAINE (PF) 0.25% 30 ML VIAL SQ ONE ×2 (12:46→13:27)
[2022-05-31] MEDS ORDERED: MIDAZOLAM 2 MG/2 ML VIAL ONE (12:47)
[2022-05-31] MEDS ORDERED: HYDROmorphone (PF) 1 MG/ML ONE (12:47)
[2022-05-31] MEDS ORDERED: LIDOCAINE 2% INJ 20 MG/ML (2 ML VIAL) ONE (12:47)
[2022-05-31] MEDS ORDERED: fentaNYL (PF) 50 MCG/ML 2 ML AMP ONE (12:47)
[2022-05-31] MEDS ORDERED: PROPOFOL 10 MG/ML 20 ML VIAL IV ONE (12:47)
[2022-05-31] MEDS ORDERED: SUCCINYLCHOLINE CHLORIDE 200 MG/10 ML VIAL IV ONE (12:47)
[2022-05-31 13:46] VITALS: RESP 16; TEMP 96.8
--- NOTE | 2022-05-31 13:46 | P.OP ---
Date of Procedure: 05/31/22 Preoperative Diagnosis: Internal derangement left knee Postoperative Diagnosis: 1. Tear medial meniscus left knee 2. Tear lateral meniscus left knee 3. Grade 2/3 chondromalacia medial femoral condyle left knee 4. Reactive synovitis medial, lateral and suprapatellar compartments left knee Procedure(s) Performed: 1. Arthroscopic partial medial and lateral meniscectomy left knee 2. Arthroscopic chondroplasty medial femoral condyle left knee 3. Arthroscopic partial synovectomy medial, lateral and suprapatellar compartments left knee Anesthesia: GUERITAA, local Surgeon: Matt Desai Estimated Blood Loss (ml): 10 Pathology: none sent Condition: stable Disposition: PACU Indications for Procedure: 51-year-old patient seen with progressive left knee pain. After treatment options were discussed, he elected to proceed with arthroscopy. Operative Findings: See description of procedure Description of Procedure: Patient was taken to the operative suite. Patient underwent a general anesthetic by the department of anesthesia. Patient was given preoperative antibiotics. The left lower extremity was placed in a well-padded arthroscopic leg fulton. The left leg was prepped and draped in the normal sterile orthoped ic fashion. A lateral parapatellar and suprapatellar incision was made. Trochars were inserted. Arthroscopy was initiated. Suprapatellar pouch revealed diffuse thick reactive synovitis. The patellofemoral joint appeared articulate congruently. There was grade 1/2 chondromalacia of the patella without significant osteochondral tears present. The scope was guided into the medial gutter. No loose bodies or plica were identified. The scope was then guided into the medial compartment. A medial parapatellar incision was made. Trocar inserted followed by probe. There was a complex tear involving the posterior horn of the medial meniscus. There were grade 2/3 chondromalacia changes of the medial femoral condyle with some osteochondral flap tears. There was some thick reactive synovitis anteriorly. I performed a partial medial meniscectomy getting down to stable meniscal tissue. I performed a partial synovectomy decompressing the reactive synovitis. I performed a chondroplasty of the medial femoral condyle getting down to stable osteochondral tissue. The residual meniscus was probed and was found to be stable. There was good decompression of synovitis. The residual osteochondral surface was stable. Scope and probe were then guided into the intercondylar notch. Cruciates were identified, probed and found to be stable. The scope and probe were then guided into lateral compartment. There was a radial tear midbody lateral meniscus. There was grade 1 chondromalacia changes without tears. There was some thick reactive synovitis anteriorly. I performed a partial lateral meniscectomy. I performed a partial synovectomy. The residual meniscus was stable. There was good decompression of synovitis. The scope was in guided back into the suprapatellar compartment. I introduced a motorized shaver into the suprapatellar compartment. I performed a partial synovectomy. Shaver was removed. There was good decompression of synovitis. I took one more look aroun d the entire knee, no residual debris. Instruments were now removed from the joint. The joint was infiltrated with .25% Marcaine. Steri-Strips were applied to the portal sites. Sterile dressings were applied. The patient was placed into a JOHN hose. No tourniquet was utilized. The patient was awakened, transferred to a bed and taken to recovery stable satisfactory condition.
[2022-05-31] MEDS ORDERED: LABETALOL 5 MG/ML VIAL MDV IVP ONE (15:06)
[2022-05-31 16:17] VITALS: BP 152/91; PULSE 90
== END 2022-05-31 16:44 | disposition home or self-care (01) ==
LOC: OR 11:15
PROVIDERS: ATTEND Orthopaedic Surgery
DX: S83.242A Other tear of medial meniscus, current injury, left knee, initial encounter (principal); M94.262 Chondromalacia, left knee; M65.862 Other synovitis and tenosynovitis, left lower leg; I10 Essential (primary) hypertension; E78.5 Hyperlipidemia, unspecified; K21.9 Gastro-esophageal reflux disease without esophagitis; E11.9 Type 2 diabetes mellitus without complications; Z90.49 Acquired absence of other specified parts of digestive tract; Z79.899 Other long term (current) drug therapy; Z91.041 Radiographic dye allergy status; X58.XXXA Exposure to other specified factors, initial encounter
CPT/HCPCS: 93005; 29880; J1100; J0690; J2405; J1170

== ENCOUNTER → 2022-10-20 | Outpatient (CLI) | payer MEDICARE, OTHER ==
--- NOTE | 2022-10-20 18:25 | MR ---
EXAMINATION TYPE: MR shoulder LT wo con DATE OF EXAM: 10/20/2022 COMPARISON: No radiographic correlation available HISTORY: 52-year-old male M25.512, Lt shoulder pain TECHNIQUE: Multiplanar, multisequence imaging of the left shoulder is performed without contrast. FINDINGS: Suspect interstitial tearing of the long head biceps tendon. There is medial subluxation along the bicipital groove secondary to significant tearing of the subsca pularis tendon. The entire inferior two thirds of the tendon appears to be torn. Some of the superior third fibers appear to remain intact. There is an os acromiale he with some reactivated edema. Moderate degenerative change at the AC joint with inferior spurring and capsular hypertrophy contacting the underlying myotendinous junction of t he supraspinatus. There is a small tear of the insertional fibers of the lateral deltoid muscle. Diffuse heterogeneity and thickening of both supraspinatus and its status tendons. There is a small, nondisplaced high-grade bursal sided versus full-thickness tear of the anterior sup raspinatus tendon measuring 1.1 x 1.1 cm. Along the mid to posterior supraspinatus tendon, there is a high-grade articular sided tear measuring 1.3 cm long by 2.0 cm wide. The articular sided tear extends into the anterior fibers of the infrasp inatus tendon. No jesu retracted or large full-thickness tear is identified. No atrophy of the rotator cuff musculature. The glenoid humeral joint appears intact. Some degenerative signal of the superior labrum. No discret e labral tear given on arthrographic technique and no paralabral cyst. No Hill-Sachs deformity. Heterogeneous red marrow is present and can be seen in setting of anemia, ob esity, smoking, and chronic disease. Clinically correlate. IMPRESSION: 1. Marked diffuse rotator cuff tendinosis. 2. Significant tear of the subscapularis tendon allowing for medial subluxation of the long head bic eps tendon. The entire inferior two thirds of the subscapularis tendon footprint appears to be torn. 3. A small 1.1 x 1.1 cm high-grade bursal sided versus nondisplaced full-thickness tear of the far a nterior supraspinatous tendon. 4. Additional articular sided tear measuring 1.3 cm long by 2.0 cm wide involving the mid to posteri or supraspinatus tendon extending into the anterior infraspinatus tendon fibers. The tear involves ju st over 50% of the tendon thickness. 5. Moderate AC joint OA with subacromial impingement. 6. Os acromiale with some reactive edema. Small muscle tear of the adjacent lateral deltoid insertio n. 7. Suspect interstitial tearing throughout the LHBT.
== END | disposition home or self-care (01) ==
LOC: RADMRIMAIN 12:38
PROVIDERS: ATTEND Orthopaedic Surgery
DX: M19.012 Primary osteoarthritis, left shoulder (principal); M75.112 Incomplete rotator cuff tear or rupture of left shoulder, not specified as traumatic; M67.814 Other specified disorders of tendon, left shoulder; R60.0 Localized edema; M25.812 Other specified joint disorders, left shoulder

== ENCOUNTER → 2023-01-03 | Outpatient (CLI) | payer MEDICARE, OTHER ==
[2023-01-03 08:43] LABS: Basophils % (A) 1 %; Eosinophils # (A) 0.1 k/uL (0-0.7); Eosinophils % (A) 1 %; HCT 46.3 % (39.0-53.0); Lymphocytes # (A) 2.2 k/uL (1.0-4.8); Lymphocytes % (A) 29 %; MCH 29.3 pg (25.0-35.0); MCHC 34.6 g/dL (31.0-37.0); MCV 84.7 fL (80.0-100.0); Mean Platelet Volume 7.7; Monocytes # (A) 0.5 k/uL (0-1.0); Monocytes % (A) 6 %; Neutrophils # (A) 4.8 k/uL (1.3-7.7); Neutrophils % (A) 62 %; Platelet Count 170 k/uL (150-450); RBC 5.47 m/uL (4.30-5.90); RDW 13.4 % (11.5-15.5); WBC 7.7 k/uL (3.8-10.6)
== END | disposition home or self-care (01) ==
LOC: LABPAT 07:25
PROVIDERS: ATTEND Orthopaedic Surgery
DX: Z01.818 Encounter for other preprocedural examination (principal); M75.41 Impingement syndrome of right shoulder
CPT/HCPCS: 80051; 85025; 93005

== ENCOUNTER 2023-01-04 13:02 | Day surgery (SDC) | payer MEDICARE, OTHER ==
[2023-01-01 10:21] VITALS: BMI 47.3
[2023-01-03 08:43] LABS: Basophils % (A) 1 %; Eosinophils # (A) 0.1 k/uL (0-0.7); Eosinophils % (A) 1 %; HCT 46.3 % (39.0-53.0); Lymphocytes # (A) 2.2 k/uL (1.0-4.8); Lymphocytes % (A) 29 %; MCH 29.3 pg (25.0-35.0); MCHC 34.6 g/dL (31.0-37.0); MCV 84.7 fL (80.0-100.0); Mean Platelet Volume 7.7; Monocytes # (A) 0.5 k/uL (0-1.0); Monocytes % (A) 6 %; Neutrophils # (A) 4.8 k/uL (1.3-7.7); Neutrophils % (A) 62 %; Platelet Count 170 k/uL (150-450); RBC 5.47 m/uL (4.30-5.90); RDW 13.4 % (11.5-15.5); WBC 7.7 k/uL (3.8-10.6)
--- NOTE | 2023-01-03 13:51 | HP ---
HISTORY AND PHYSICAL SURGERY DATE: 01/04/2023. HISTORY OF PRESENT ILLNESS: Darron Kerr is a 52-year-old gentleman, seen with progressive left shoulder pain. We discussed options. He elected to proceed with arthroscopy. Consent regarding procedure obtained. PAST MEDICAL HISTORY: Hypertension, hyperlipidemia, [id number] diabetes. PAST SURGICAL HISTORY: Cataract surgery, cholecystectomy, lap band surgery with subsequent removal. DAILY MEDICATIONS: 1. Omeprazole. 2. Rosuvastatin. 3. Trulicity. 4. Jardiance. 5. Diclofenac. ALLERGIES: IV dye. SOCIAL HISTORY: Denies tobacco use. PHYSICAL EVALUATION OF LEFT SHOULDER: Flexion is 150 degrees, abduction is 110 degrees, external rotation is 40 degrees with pain and weakness. Tenderness along the anterolateral acromion, rotator cuff insertion. Impingement is positive at 80 degrees. Cross-body adduction sign is positive. Drop-arm sign is positive. Distal neurovascular exam is intact. RADIOGRAPHS: Left shoulder, type 2 acromion, acromioclavicular joint osteoarthritis and calcifications along the tuberosity, consistent with calcific tendinitis. Left shoulder MRI revealed rotator cuff tear, impingement, acromioclavicular joint osteoarthritis, and partial long head biceps tendon tear. IMPRESSION: 1. Left shoulder impingement with rotator cuff tear. 2. Left shoulder acromioclavicular joint osteoarthritis. 3. Left shoulder partial biceps tendon tear. 4. Hypertension. 5. Hyperlipidemia. 6. [id number] diabetes. PLAN: Left shoulder arthroscopy with rotator cuff repair, decompression, Boby procedure, and biceps tenodesis. MMODL / IJN: [id number] /
[~2023-01-04 13:02] MED LIST changes: +LACTATED RINGERS 1,000 ML IV SCH; -LIDOCAINE 1% (10MG/ML) FOR IV START INTRADERMA PRN; -SCOPOLAMINE 1 MG/72 HR PATCH TRANSDERM ONE
[2023-01-04 13:38] VITALS: TEMP 97
[2023-01-04 13:46] LABS: Glucose,Whole Blood 117 mg/dL (70-110)
[2023-01-04] MEDS ORDERED: MIDAZOLAM 2 MG/2 ML VIAL IVP ONE (14:05)
[2023-01-04] MEDS ORDERED: LIDOCAINE 2% INJ 20 MG/ML (2 ML VIAL) ONE (14:51)
[2023-01-04] MEDS ORDERED: PROPOFOL 10 MG/ML 20 ML VIAL IV ONE (14:51)
[2023-01-04] MEDS ORDERED: fentaNYL (PF) 50 MCG/ML 2 ML AMP ONE (14:51)
[2023-01-04] MEDS ORDERED: DEXAMETHASONE SOD PHOSPHATE 4 MG/ML 1 ML VIAL ONE (14:51)
[2023-01-04] MEDS ORDERED: ROPIVACAINE 5 MG/ML 30 ML VIAL ONE (14:51)
[2023-01-04] MEDS ORDERED: SUCCINYLCHOLINE CHLORIDE 200 MG/10 ML VIAL IV ONE (14:51)
[2023-01-04] MEDS ORDERED: MIDAZOLAM 2 MG/2 ML VIAL ONE (14:51)
--- NOTE | 2023-01-04 15:43 | P.ANPRN ---
Procedure Note - Anesthesia - Nerve Block Performed Left Interscalene Single Time Out Performed: Yes (1405) Date of Procedure: 01/04/23 Location of Patient: PreOp Indication: Acute Post-Operative Pain, Dx/Pain Location Sedation Type: Sedate with meaningful contact maintained Position: Supine Catheter: None Needle Types: Pajunk Needle Gauge: 21 Ultrasound used to visualize needle placement: Yes Ultrasound used to observe medication spread: Yes Injectate: 0.5% Ropivacaine (see comment for volume) (30 mL +4 mg of Decadron) Blood Aspirated: No Pain Paresthesia on Injection Noted: No Resistance on Injection: Normal Image Stored and Saved: Yes Events: Uneventful and Well Tolerated
--- NOTE | 2023-01-04 16:40 | P.OP ---
Date of Procedure: 01/04/23 Preoperative Diagnosis: Left shoulder impingement Postoperative Diagnosis: 1. Left shoulder rotator cuff tear 2. Left shoulder impingement 3. Left shoulder bicipital tendinitis with some partial tearing 4. Left shoulder acromioclavicular joint osteoarthritis Procedure(s) Performed: 1. Left shoulder arthroscopic rotator cuff repair 2. Left shoulder arthroscopic subacromial decompression 3. Left shoulder arthroscopic biceps tenodesis 4. Left shoulder arthroscopic Boby procedure Implants: 2Arthrex 4.75 swivel lock anchors Anesthesia: GETA, regional (Interscalene block) Surgeon: Matt Desai Science Manager #1: Mike Garay Estimated Blood Loss (ml): 9 Pathology: none sent Condition: stable Disposition: PACU Indications for Procedure: 52-year-old gentleman seen with progressive left shoulder pain. After having treatment options discussed, he elected to proceed with arthroscopy. Operative Findings: See description of procedure Description of Procedure: Patient underwent an interscalene block by department of anesthesia. The patient was then taken to the operative suite. The patient underwent a general anesthetic by the department of anesthesia. The patient was placed into a lateral position and secured. There was appropriate padding of the bony prominence. Left shoulder was then prepped and draped in normal sterile orthopedic fashion. We placed the extremity in 10 pounds of longitudinal traction. A posterior incision was now made for a posterior working portal site. The trocar and cannula were inserted into the glenohumeral joint. Arthroscopy was initiated. Spinal needle was now inserted anteriorly, to ascertain the anterior working portal site. An incision was now made in that area, a trocar was inserted followed by a probe. The labrum was probed and was found to be stable. There were mild grade 1 chondral malacia changes of the glenoid fossa anteriorly. There was some hyperemia and area of partial tearing long head farzad ps tendon consistent with bicipital tendinitis. At this point I decided to proceed with arthroscopic biceps tenodesis. I enlarged my anterior portal site. I introduced a cannula. With the assistance of Christoph BERNAL now created a loop intact stitch technique to the long head biceps tendon. I now released the biceps from the superior labrum. I now punched a hole at the interval between the subscapularis and super SMAS tendons for insertion of an anchor. The suture limb was passed through the eyelet of an Arthrex 4.75 swivel lock anchor. I placed the eyelet into our pre-punch hole. I held it in position while Christoph BERNAL tension the suture and deployed the anchor with excellent fixation noted. The residual suture limb was clipped. We had a stable appearing biceps tenodesis. Instruments were now removed from the glenohumeral joint. Utilizing the posterior working portal site, the trocar and cannula were inserted into the subacromial space. Arthroscopy initiated. I made an incision 2 fingerbreadths lateral to the acromion. I introduced my trocar followed by my ArthroCare ablator. I now began ablating thick subacromial bursal tissue, which exposed the undersurface of the anterior acromion. There was diminished subacromial space. There was a very prominent anterior acromion. A motorized bur was introduced and a subacromial decompression was performed. I also excised some osteophytes off the inferior aspect of the distal clavicle. The AC joint was visualized and noted to be fairly arthritic. The motorized bur was introduced in the anterior portal site and a Boby procedure was performed without difficulty, decompressing the AC joint nicely. I turned my attention to the rotator cuff. There was considerable partial tearing along the distal supraspinatus area. Upon probing the area noted a full-thickness perforation. I debrided the margins getting down to stable tendon tissue. I abraded the footprint with a motorized bur. The defect/tear measured just over about a centimeter and was freely mobile over the footprint. With the assistance of Christoph BERNAL past 2 everted mattress sutures through good bites of rotator cuff tendon. I did note a potential dogear posteriorly so I passed a suture link there. I now passed all 5 limbs of suture through the eyelet of an Arthrex 4.75 swivel lock anchor. I placed the eyelet into our pre-punch hole. I held in position while Christoph BERNAL tensioned all 5 limbs of suture and deployed the anchor with good fixation noted. All residual suture limbs were now clipped. We had good compression of the tendon along the entire footprint. Instruments now removed from the portal sites. All portal sites were approximated with nylon suture. Sterile dressings were applied followed by a shoulder sling. Mike BERNAL assisted in this complex case. The patient was awakened, transferred to a bed, and taken to recovery in stable condition.
[2023-01-04 17:11] LABS: Glucose,Whole Blood 137 mg/dL (70-110)
[2023-01-04] MEDS ORDERED: METOCLOPRAMIDE 5 MG/ML 2 ML VIAL IVP ONE (17:24)
[2023-01-04] MEDS ORDERED: LACTATED RINGERS 1,000 ML IV ONE (17:30)
[2023-01-04] MEDS ORDERED: droPERidol 5 MG/2 ML VIAL IVP ONE (18:18)
[2023-01-04 18:22] VITALS: BP 157/91; PULSE 94; RESP 20
== END 2023-01-04 19:11 | disposition home or self-care (01) ==
LOC: OR 13:02
PROVIDERS: ATTEND Orthopaedic Surgery
DX: M75.102 Unspecified rotator cuff tear or rupture of left shoulder, not specified as traumatic (principal); M75.42 Impingement syndrome of left shoulder; M75.22 Bicipital tendinitis, left shoulder; M19.012 Primary osteoarthritis, left shoulder
CPT/HCPCS: 64415; 80051; 85025; 93005; 29826; 29827; 29828; C1713 ×4; J2250; J0330; J1100; J2765; J0690; J2405; J3010; J2795; J2704; J1790; J2001

== ENCOUNTER → 2023-02-16 | Outpatient (CLI) | payer MEDICARE, OTHER ==
--- NOTE | 2023-02-23 15:33 | MR ---
MRI right ankle HISTORY: Pain following injury. COMPARISON: None. TECHNIQUE: Multiecho multiplanar images of the right ankle were obtained without contrast. The osseous structures are intact and there is no bone contusion or fracture. The ankle mortise is in tact. There is moderate soft tissue swelling over the medial and lateral malleolus and in the plantar soft tissues. There is a complete tear of the Achilles tendon distally at its attachment to the calcaneus. The extensor and flexor tendons are intact. There is no evidence of ligamentous injury IMPRESSION: Complete tear of the distal Achilles tendon with soft tissue swelling as described above.
== END | disposition home or self-care (01) ==
LOC: RADMRIMAIN 11:05
PROVIDERS: ATTEND Orthopaedic Surgery
DX: S86.091A Other specified injury of right Achilles tendon, initial encounter (principal); M79.89 Other specified soft tissue disorders; X58.XXXA Exposure to other specified factors, initial encounter

== ENCOUNTER 2023-12-30 19:13 | Emergency (ER) | payer MEDICARE, OTHER ==
[2023-12-30 19:19] VITALS: RESP 18; TEMP 99
--- NOTE | 2023-12-30 20:07 | ED ---
Abdominal Pain HPI - General Chief Complaint: Abdominal Pain Stated Complaint: L-side pain, vomiting Time Seen by Provider: 12/30/23 19:28 Source: patient, RN notes reviewed Mode of arrival: ambulatory Limitations: no limitations - History of Present Illness Initial Comments: This is a 53-year-old male who presents to the emergency department for left fl ank pain. States that it started almost a week ago. Pain does not radiate anywhere. He has associated nausea and vomiting. Denies any urinary symptoms. He went to [facility] 3 days ago and had lab work and a CT scan done. States that he was told that everything was normal and he was given a prescription for stool softeners and muscle relaxants. He started to develop some diarrhea as a result of taking stool softeners. He continues to have persistent pain. States that the pain is hitting him in waves. He also continues to have vomiting and has already thrown up 4 times within the last hour. Denies any sick contacts or any injuries. MD Complaint: flank pain - Related Data Home Medications Medication Instructions Recorded Confirmed Irbesartan [Avapro] 150 mg PO HS 08/24/17 01/01/23 Spironolactone [Aldactone] 25 mg PO DAILY 08/24/17 01/01/23 Spironolactone [Aldactone] 50 mg PO HS 08/24/17 01/01/23 Diclofenac Potassium [Cataflam] 50 mg PO BID 03/25/18 01/01/23 Empagliflozin [Jardiance] 10 mg PO HS 05/29/22 01/01/23 Rosuvastatin [Crestor] 10 mg PO QAM 05/29/22 01/01/23 Dulaglutide [Trulicity] 1.5 mg SQ WEEKLY 01/01/23 01/01/23 Gabapentin [Neurontin] 300 mg PO QAM 01/01/23 01/01/23 Gabapentin [Neurontin] 600 mg PO HS 01/01/23 01/01/23 Omeprazole 20 mg PO DAILY 01/01/23 01/01/23 Previous Rx's Medication Instructions Recorded HYDROcodone/APAP 7.5-325MG [[place] 1 each PO Q6HR PRN #28 tab 01/04/23 7.5] Hyoscyamine Sulfate [Levsin] 0.125 mg PO Q4H PRN #30 tab 12/30/23 Metoclopramide [Reglan] 10 mg PO Q6H PRN #30 tab 12/30/23 Sucralfate [Carafate] 1 gm PO QID #30 tablet 12/30/23 Allergies Allergy/AdvReac Type Severity Reaction Status Date / Time Iodinated Contrast Media Allergy Severe Stopped Verified 12/30/23 19:18 [Iodinated Contrast Media - breathing IV Dye] Iodine and Iodide Containing Allergy Anaphylaxis Verified 12/30/23 19:18 Produc red dye Allergy Dyspnea Verified 12/30/23 19:18 Review of Systems ROS Statement: Those systems with pertinent positive or pertinent negative responses have been documented in the HPI. ROS Other: All systems not noted in ROS Statement are negative. Past Medical History Past Medical History: Diabetes Mellitus, Hypertension, Osteoarthritis (OA), Sleep Apnea/CPAP/BIPAP Additional Past Medical History / Comment(s): sleep apnea w/bi-pap ., seizures as a child., hereditary neuropathy with pressure palsey which causes intermittent numbness/tingling/palpitations-a variety of symptoms-2 TIA LIKE ISSUES DUE TO PRESSURE PALSY, atypical chest pain tested as neuromuscular, hx pancreatitis 20 yrs ago. Fatty liver. , states pain all over that comes and goes ., occasionally uses cane. History of Any Multi-Drug Resistant Organisms: None Reported Past Surgical History: Bariatric Surgery, Cholecystectomy, Tonsillectomy Additional Past Surgical History / Comment(s): cataract w/ lens implants, R corneal transplant, R eye detached retina, uvulaectomy, nerve and muscle biopsy, lap band insertion and removal. Left knee arthroscopic Past Anesthesia/Blood Transfusion Reactions: Previous Problems w/ Anesthesia Additional Past Anesthesia/Blood Transfusion Reaction / Comment(s): states slow to awaken after anesthesia & hx severe headache post-op Past Psychological History: No Psychological Hx Reported Smoking Status: Never smoker Past Alcohol Use History: None Reported Past Drug Use History: None Reported - Past Family History Father Family Medical History: Coronary Artery Disease (CAD), Myocardial Infarction ([place]) Additional Family Medical History / Comment(s): Father has had many coronary s tents. Mother Family Medical History: Coronary Artery Disease (CAD), Myocardial Infarction ([place]) General Exam Limitations: no limitations General appearance: alert, in no apparent distress Head exam: Present: atraumatic, normocephalic, normal inspection Respiratory exam: Present: normal lung sounds bilaterally. Absent: respiratory distress, wheezes, rales, rhonchi, stridor Cardiovascular Exam: Present: regular rate, normal rhythm, normal heart sounds. Absent: systolic murmur, diastolic murmur, rubs, gallop, clicks GI/Abdominal exam: Present: soft, normal bowel sounds. Absent: distended, tenderness, guarding, rebound, rigid Back exam: Present: CVA tenderness (L). Absent: CVA tenderness (R) Neurological exam: Present: alert, oriented X3, CN II-XII intact Psychiatric exam: Present: normal affect, normal mood Skin exam: Present: warm, dry, intact, normal color. Absent: rash Course Vital Signs 12/30/23 12/30/23 12/30/23 19:15 21:18 22:54 Temperature 99.0 F Pulse Rate 97 97 90 Respiratory 18 18 18 Rate Blood Pressure 163/87 158/84 133/85 O2 Sat by Pulse 97 97 97 Oximetry 12/31/23 00:07 Temperature Pulse Rate 94 Respiratory 18 Rate Blood Pressure 136/86 O2 Sat by Pulse 97 Oximetry Medical Decision Making - Medical Decision Making This is a 53 year old male who presents to the emergency department for abdominal/flank pain. Was pt. sent in by a medical professional or institution? @ -No Did you speak to anyone other than the patient for history? @ -No Did you review nursing and triage notes? @ -Yes, and I agree, it is accurate with regards to the patient's symptoms. Were old charts reviewed? @ -No Differential Diagnosis? @ -Differential Flank Pain: UTI, pyelonephritis, kidney stone, musculoskeletal, pancreatitis, cholecystitis, this is not meant to be an all-inclusive list. EKG interpreted by me (3pts min.)? @ -EKG interpreted by me demonstrating the following: Sinus rhythm. Ventricular rate 89 bpm, ND interval 131 ms, QRS duration 107 ms, QTc 412 ms. X-rays interpreted by me (1pt min.)? @ -Not obtained CT interpreted by me (1pt min.)? @ -CT scan of the abdomen and pelvis obtained. My interpretation identifies no evidence of bowel wall thickening or free air. U/S interpreted by me (1pt. min.)? @ -Not obtained What testing was considered but not performed? (CT, X-rays, U/S, labs)? Why? @ -None What meds were considered but not given? Why? @ -None Did you discuss the management of the patient with other professionals? @ -No Did you reconcile home meds? @ -No Was smoking cessation discussed for >3mins.? @ -No Was critical care preformed (if so, how long)? @ -No Were there social determinants of health that impacted care today? How? (Homelessness, low income, unemployed, alcoholism, drug addiction, tra nsportation, low edu. Level, literacy, decrease access to med. care, custodial, rehab)? @ -No Was there de-escalation of care discussed even if they declined? (Discuss DNR or withdrawal of care, Hospice)? @ -No What co-morbidities impacted this encounter? (DM, HTN, Smoking, COPD, CAD, Cancer, CVA, Hep., AIDS, mental health diagnosis, sleep apnea, morbid obesity)? @ -DM, HTN Was patient admitted / discharged? @ -Discharged. Lab work unremarkable. CT scan of the abdomen and pelvis revealed no acute process. Patient unable to provide a urine sample prior to discharge. The cause of his symptoms is not entirely clear. Discussed the possibility of a gastritis or peptic ulcer given that it is in the left upper quadrant and back with associated vomiting. We were able to get his symptoms under control while in the emergency department. He felt that the Reglan was much more effective for nausea than the Zofran. He also had improvement in pain with the GI cocktail. Prescription for Reglan, Levsin, and Carafate subsequently provided. Advised to contact Dr. Colbert's office for follow-up appointment, as he has been evaluated there before. Also discussed following a bland diet for the meantime to see if this helps with his symptoms. Patient discharged home in stable condition. Undiagnosed new problem with uncertain prognosis? @ -None Drug Therapy requiring intensive monitoring for toxicity (Heparin, Nitro, Insulin, Cardizem)? @ -None Were any procedures done? @ -None Diagnosis/symptom? @ -Abdominal pain Acute, or Chronic, or Acute on Chronic? @ -Acute Uncomplicated (without systemic symptoms) or Complicated (systemic symptoms)? @ -Uncomplicated Side effects of treatment? @ -None Exacerbation, Progression, or Severe Exacerbation] @ -Not applicable Poses a threat to life or bodily function? @ -No Return precautions reviewed in depth, the patient is instructed to return to the emergency department with any new, worsening, or concerning symptoms. Patient verbalized understanding. This case was discussed in detail with the attending ED physician, Dr. Reeves. Presentation, findings, and treatment plan discussed in detail as well. - Lab Data Result diagrams: 12/30/23 20:35 12/30/23 20:35 Lab Results 12/30/23 12/30/23 12/30/23 Range/Units 20:35 20:35 20:35 WBC 10.4 (3.8-10.6) k/uL RBC 6.04 H (4.30-5.90) m/uL Hgb 17.0 (13.0-17.5) gm/dL Hct 50.4 (39.0-53.0) % MCV 83.5 (80.0-100.0) fL MCH 28.1 (25.0-35.0) pg MCHC 33.7 (31.0-37.0) g/dL RDW 12.7 (11.5-15.5) % Plt Count 226 (150-450) k/uL MPV 7.2 Neutrophils % 79 % Lymphocytes % 15 % Monocytes % 5 % Eosinophils % 0 % Basophils % 0 % Neutrophils # 8.2 H (1.3-7.7) k/uL Lymphocytes # 1.5 (1.0-4.8) k/uL Monocytes # 0.5 (0-1.0) k/uL Eosinophils # 0.0 (0-0.7) k/uL Basophils # 0.0 (0-0.2) k/uL Sodium 135 L (137-145) mmol/L Potassium 5.0 (3.5-5.1) mmol/L Chloride 104 (98-107) mmol/L Carbon Dioxide 20 L (22-30) mmol/L Anion Gap 11 mmol/L BUN 21 H (9-20) mg/dL Creatinine 1.05 (0.66-1.25) mg/dL Est GFR (CKD-EPI)AfAm >90 (>60 ml/min/1.73 sqM) Est GFR (CKD-EPI)NonAf 82 (>60 ml/min/1.73 sqM) Glucose 116 H (74-99) mg/dL Plasma Lactic Acid Ish 1.3 (0.7-2.0) mmol/L Calcium 9.7 (8.4-10.2) mg/dL Phosphorus 3.3 (2.5-4.5) mg/dL Magnesium 1.9 (1.6-2.3) mg/dL Total Bilirubin 1.5 H (0.2-1.3) mg/dL AST 40 (17-59) U/L ALT 43 (4-49) U/L Alkaline Phosphatase 91 (38-126) U/L Troponin I (0.000-0.034) ng/mL Total Protein 7.8 (6.3-8.2) g/dL Albumin 4.8 (3.5-5.0) g/dL Amylase 70 (30-110) U/L Lipase 262 (23-300) U/L 12/30/23 Range/Units 20:35 WBC (3.8-10.6) k/uL RBC (4.30-5.90) m/uL Hgb (13.0-17.5) gm/dL Hct (39.0-53.0) % MCV (80.0-100.0) fL MCH (25.0-35.0) pg MCHC (31.0-37.0) g/dL RDW (11.5-15.5) % Plt Count (150-450) k/uL MPV Neutrophils % % Lymphocytes % % Monocytes % % Eosinophils % % Basophils % % Neutrophils # (1.3-7.7) k/uL Lymphocytes # (1.0-4.8) k/uL Monocytes # (0-1.0) k/uL Eosinophils # (0-0.7) k/uL Basophils # (0-0.2) k/uL Sodium (137-145) mmol/L Potassium (3.5-5.1) mmol/L Chloride (98-107) mmol/L Carbon Dioxide (22-30) mmol/L Anion Gap mmol/L BUN (9-20) mg/dL Creatinine (0.66-1.25) mg/dL Est GFR (CKD-EPI)AfAm (>60 ml/min/1.73 sqM) Est GFR (CKD-EPI)NonAf (>60 ml/min/1.73 sqM) Glucose (74-99) mg/dL Plasma Lactic Acid Ish (0.7-2.0) mmol/L Calcium (8.4-10.2) mg/dL Phosphorus (2.5-4.5) mg/dL Magnesium (1.6-2.3) mg/dL Total Bilirubin (0.2-1.3) mg/dL AST (17-59) U/L ALT (4-49) U/L Alkaline Phosphatase (38-126) U/L Troponin I <0.012 (0.000-0.034) ng/mL Total Protein (6.3-8.2) g/dL Albumin (3.5-5.0) g/dL Amylase (30-110) U/L Lipase (23-300) U/L - Radiology Data Radiology results: report reviewed, image reviewed Disposition Clinical Impression: Abdominal pain Disposition: HOME SELF-CARE Condition: Fair Instructions (If sedation given, give patient instructions): Peptic Ulcer (ED), Gastritis (ED), Abdominal Pain (ED) Additional Instructions: Return to the emergency department with any new, worsening, or concerning symptoms. Begin taking the Carafate 4 times daily. Ideally, take this 1 hour before meals and at bedtime. You can take the Reglan up to every 6 hours as needed for nausea and vomiting. You can take the Levsin up to every 4 hours as needed for abdominal discomfort. Follow a bland and low fat diet for the mean time to see if that helps your symptoms. Make a follow-up appointment with Dr. Colbert's office for further evaluation. Prescriptions: Sucralfate [Carafate] 1 gm PO QID #30 tablet Hyoscyamine Sulfate [Levsin] 0.125 mg PO Q4H PRN #30 tab PRN Reason: Gi Upset Metoclopramide [Reglan] 10 mg PO Q6H PRN #30 tab PRN Reason: Nausea And Vomiting Is patient prescribed a controlled substance at d/c from ED?: No Referrals: Arleth Goetz MD [Primary Care Provider] - 1-2 days Iza Colbert MD [STAFF PHYSICIAN] - 1-2 days Time of Disposition: 23:36
[2023-12-30] MEDS: SODIUM CHLORIDE 0.9% 1,000 ML IV STA ×2 (20:34→22:48)
[2023-12-30] MEDS: KETOROLAC 15 MG/ML 1 ML VIAL IVP STA (20:34)
[2023-12-30] MEDS: ONDANSETRON 4 MG/2 ML VIAL IVP STA (20:35)
[2023-12-30] MEDS: MORPHINE SULFATE 4 MG/ML SYRINGE IVP STA (20:35)
--- NOTE | 2023-12-30 21:09 | CT ---
EXAMINATION TYPE: CT abdomen pelvis wo con CT DLP: 2269.9 mGycm, Automated exposure control for dose reduction was used. DATE OF EXAM: 12/30/2023 9:02 PM COMPARISON: 04/24/2016 CLINICAL INDICATION:Male, 53 years old with history of Left flank pain; Left flank pain TECHNIQUE: Axial CT abdomen pelvis wo con;Sagittal and coronal reformats were created on a separate workstation. Contrast used: mL of , (none if empty) Oral contrast used: without Oral Contrast (none if empty) FINDINGS: LOWER CHEST: Unremarkable ABDOMEN LIVER: Unremarkable GALLBLADDER AND BILE DUCTS: The gallbladder is surgically absent. PANCREAS: Unremarkable. SPLEEN: Unremarkable. ADRENAL GLANDS: Unremarkable. KIDNEYS AND URETERS: No evidence of hydronephrosis or renal calculus. The ureters are unremarkable. PELVIS BLADDER: Unremarkable REPRODUCTIVE: Penile prosthesis with reservoir in the abdominal musculature on the right. Tubing appe ars intact. ABDOMEN & PELVIS STOMACH AND BOWEL: No evidence of bowel obstruction. Scattered colonic diverticula PERITONEUM/RETROPERITONEUM: No evidence of pneumoperitoneum or free fluid. VASCULATURE: No evidence of aortic aneurysm. MUSCULOSKELETAL: No acute osseous abnormalities LYMPH NODES: No gross evidence for lymphadenopathy. SOFT TISSUE/ABDOMINAL WALL: Fat-containing umbilical hernia. IMPRESSION: 1. No evidence for diverticulitis or obstructive uropathy. No left-sided abdominal process to explai n the patient's pain. 2. Colonic diverticulosis.
[2023-12-30 21:22] LABS: Basophils % (A) 0 %; Eosinophils % (A) 0 %; HCT 50.4 % (39.0-53.0); Lymphocytes # (A) 1.5 k/uL (1.0-4.8); Lymphocytes % (A) 15 %; MCH 28.1 pg (25.0-35.0); MCHC 33.7 g/dL (31.0-37.0); MCV 83.5 fL (80.0-100.0); Mean Platelet Volume 7.2; Monocytes # (A) 0.5 k/uL (0-1.0); Monocytes % (A) 5 %; Neutrophils # (A) 8.2 k/uL (1.3-7.7); Neutrophils % (A) 79 %; Platelet Count 226 k/uL (150-450); RBC 6.04 m/uL (4.30-5.90); RDW 12.7 % (11.5-15.5); WBC 10.4 k/uL (3.8-10.6)
[2023-12-30 21:32] LABS: ALT 43 U/L (4-49); AST 40 U/L (17-59); African American GFR (CKD) >90 (>60 ml/min/1.73 sqM); Albumin 4.8 g/dL (3.5-5.0); Alkaline Phosphatase 91 U/L (38-126); Amylase 70 U/L (30-110); Anion Gap 11 mmol/L; Blood Urea Nitrogen 21 mg/dL (9-20); Calcium 9.7 mg/dL (8.4-10.2); Carbon Dioxide 20 mmol/L (22-30); Chloride 104 mmol/L (98-107); Glucose 116 mg/dL (74-99); Lipase 262 U/L (23-300); Magnesium 1.9 mg/dL (1.6-2.3); Non-African American GFR(CKD) 82 (>60 ml/min/1.73 sqM); Phosphorus 3.3 mg/dL (2.5-4.5); Sodium 135 mmol/L (137-145); Total Bilirubin 1.5 mg/dL (0.2-1.3); Total Protein 7.8 g/dL (6.3-8.2)
[2023-12-30] MEDS: DICYCLOMINE 10 MG/ML 2 ML AMP IM STA (21:45)
[2023-12-30] MEDS: METOCLOPRAMIDE 5 MG/ML 2 ML VIAL IVP STA (22:48)
[2023-12-30] MEDS: MAG HYDROX/AL HYDROX/SIMETH 30 ML, HYOSCYAMINE ELIXIR 10 ML PO STA (22:50)
[2023-12-31 00:07] VITALS: BP 136/86; PULSE 94
[2023-12-31] MEDS: ACET/COD 300 MG/30 MG STARTER PACK 6 TAB BTL PO STA (00:16)
[2023-12-31] MEDS: SUCRALFATE 1 GM TAB PO STA (00:17)
[2023-12-31] MEDS: ONDANSETRON 4 MG ODT STARTER PACK 2 TAB BTL PO STA (00:17)
== END 2023-12-31 00:21 | disposition home or self-care (01) ==
LOC: EC 19:13
DX: R10.32 Left lower quadrant pain (principal); I10 Essential (primary) hypertension; E11.9 Type 2 diabetes mellitus without complications; R11.10 Vomiting, unspecified; Z91.041 Radiographic dye allergy status
CPT/HCPCS: 36415; 93005; 80053; 82150; 83605; 83690; 83735; 84100; 84484; 85025; 74176; 99284; 96374; 96375 ×3; 96361 ×2; 96372; J2270; J0500; J2765; J2405; J1885; S0119

== ENCOUNTER 2024-03-21 08:22 | Day surgery (SDC) | payer MEDICARE, OTHER ==
[~2024-03-21 08:22] MED LIST changes: -DEXAMETHASONE SOD PHOSPHATE 4 MG/ML 1 ML VIAL IV ONE; -HYDROmorphone 0.5 MG/0.5 ML SYRINGE IVP PRN; -ONDANSETRON 4 MG/2 ML VIAL IVP ONE; -ceFAZolin 3 GM in SODIUM CHLORIDE 0.9% 100 ML IVPB PRN
[2024-03-21 08:39] VITALS: TEMP 97
[2024-03-21] MEDS: IV FLUID CONTINUATION 1,000 ML IV ONE (08:49)
[2024-03-21 08:50] LABS: Glucose,Whole Blood 132 mg/dL (70-110)
[2024-03-21] MEDS ORDERED: LIDOCAINE 1% INJ 10MG/ML (20 ML MDV) ONE (09:10)
[2024-03-21] MEDS ORDERED: PROPOFOL 10 MG/ML 20 ML VIAL IV ONE (09:10)
--- NOTE | 2024-03-21 09:26 | P.PCN ---
Date of Procedure: 03/21/24 Procedure(s) Performed: BRIEF HISTORY: Patient is a 53-year-old, pleasant, white man scheduled for an upper endoscopy as a part of evaluation of intermittent black tarry stools for the last few months. Complains of location epigastric discomfort. No nausea vomiting.. PROCEDURE PERFORMED: Esophagogastroduodenoscopy with biopsy. PREOPERATIVE DIAGNOSIS: Intermittent black tarry stools of several months duration. IV sedation per anesthesia. PROCEDURE: After informed consent was obtained, the patient was brought into the endoscopy unit. IV sedation was administered by Anesthesia under continuous monitoring. Initially the Olympus GIF-140 video endoscope was inserted into the mouth. Esophagus intubated without any difficulty. It was gradually advanced into the stomach and duodenum and carefully examined. The bulb and the second part of the duodenum appeared normal. The scope at this time was withdrawn to the stomach, adequately insufflated with air, and upon careful examination, mucosa of the antrum, and by gastritis and biopsies were done from this area. Mucosa of the proximal body of the stomach had some congested appearing mucosa consistent with mild portal gastropathy. Rest of the body, cardia and the fundus appeared normal. The scope was then withdrawn into the esophagus. The GE junction was located at 39 cm from the incisors. The esophagus appeared normal. There were no erosions or ulcerations seen and the patient tolerated the procedure well. IMPRESSION: 1. Mild antral gastritis. 2. No evidence of peptic ulcer disease 3. Mild congested appearing mucosa in the proximal body of the stomach consistent with portal gastropathy. RECOMMENDATIONS: The findings of this examination were discussed with the patient as well as his family. He was advised to follow-up with the biopsy results. Continue with current medications..
[2024-03-21 09:43] VITALS: BP 117/78; PULSE 78; RESP 18
== END 2024-03-21 10:01 | disposition home or self-care (01) ==
LOC: ORWHC2ENDO 08:22
PROVIDERS: ATTEND Internal Medicine Gastroenterology
CPT/HCPCS: 43239; 88305

== ENCOUNTER → 2024-04-17 | Outpatient (CLI) | payer MEDICARE, OTHER ==
[2024-04-17 10:21] LABS: Basophils # (A) 0.03 X 10*3/uL (0.00-0.10); Basophils % (A) 0.5 %; Eosinophils # (A) 0.07 X 10*3/uL (0.04-0.35); Eosinophils % (A) 1.1 %; Lymphocytes # (A) 2.62 X 10*3/uL (0.90-5.00); Lymphocytes % (A) 39.5 %; MCHC 34.1 g/dL (32.0-37.0); MCV 82.2 FL (80.0-97.0); Mean Platelet Volume 9.7 FL (9.5-12.2); Monocytes % (A) 7.5 %; NRBC Per 100 WBC 0 X 10*3/uL (0.00-0.01); Neutrophils # (A) 3.39 X 10*3/uL (1.80-7.70); Neutrophils % (A) 50.9 %; Platelet Count 181 X 10*3/uL (140-440); RBC 5.35 X 10*6/uL (4.40-5.60); RDW 12.5 % (11.5-14.5); WBC 6.64 X 10*3/uL (4.50-10.00)
[2024-04-17 10:24] LABS: Anion Gap 8.9 mmol/L (4.00-12.00); Carbon Dioxide 24.1 mmol/L (21.6-31.8); Potassium 4.6 mmol/L (3.5-5.5)
== END | disposition home or self-care (01) ==
LOC: LABPAT 07:32
PROVIDERS: ATTEND Orthopaedic Surgery
DX: Z01.818 Encounter for other preprocedural examination (principal); M75.41 Impingement syndrome of right shoulder
CPT/HCPCS: 80051; 85025; 93005

== ENCOUNTER 2024-08-25 08:36 | Emergency (ER) | payer MEDICARE, OTHER ==
[2024-08-25 08:39] VITALS: TEMP 98
--- NOTE | 2024-08-25 09:29 | ED ---
Back Pain HPI - General Chief Complaint: Back Pain/Injury Stated Complaint: Back pain Time Seen by Provider: 08/25/24 09:29 Source: patient, family (), RN notes reviewed, old records reviewed Limitations: no limitations - History of Present Illness Initial Comments: 54-year-old male presented to ER for evaluation of back pain. Patient reports since yesterday he has been having a sharp abdominal pain to his left flank. He states is a consistent pain with no known triggers. He states he is having difficulty finding a comfortable position. He reports last night he had numerous bilateral lower extremity muscle cramps. He denies any radiation of pain, saddle paresthesias, bowel or bladder incontinence/retention, fevers or history of IV drug abuse. He denies any injuries or traumas. He has not taken anything for his symptoms at this time. He also reports he is nauseous with mild dizziness he is unsure if this is stemming from pain. He denies any vomiting, diarrhea, urinary complaints, history of kidney stones, chest pain, shortness of breath or other complaints at this time. Patient does report this has happened in the past but states his pain is different than prior. - Related Data Home Medications Medication Instructions Recorded Confirmed Irbesartan [Avapro] 150 mg PO HS 08/24/17 04/22/24 Spironolactone [Aldactone] 25 mg PO QAM 08/24/17 04/22/24 Spironolactone [Aldactone] 50 mg PO HS 08/24/17 04/22/24 Diclofenac Potassium [Cataflam] 50 mg PO BID 03/25/18 04/22/24 Empagliflozin [Jardiance] 10 mg PO HS 05/29/22 04/22/24 Rosuvastatin [Crestor] 10 mg PO QAM 05/29/22 04/22/24 Dulaglutide [Trulicity] 1.5 mg SQ ALMAZAN 01/01/23 04/22/24 Gabapentin [Neurontin] 300 mg PO QAM 01/01/23 04/22/24 Gabapentin [Neurontin] 600 mg PO HS 01/01/23 04/22/24 Omeprazole 20 mg PO QAM 01/01/23 04/22/24 Previous Rx's Medication Instructions Recorded Cyclobenzaprine [Flexeril] 10 mg PO TID PRN #15 tab 08/25/24 Lidocaine 4% Patch 1 patch TOPICAL DAILY #15 patch 08/25/24 Allergies Allergy/AdvReac Type Severity Reaction Status Date / Time Iodinated Contrast Media Allergy Severe Stopped Verified 08/25/24 08:39 [Iodinated Contrast Media - breathing IV Dye] Iodine and Iodide Containing Allergy Anaphylaxis Verified 08/25/24 08:39 Produc red dye Allergy Dyspnea Verified 08/25/24 08:39 Review of Systems ROS Statement: Those systems with pertinent positive or pertinent negative responses have been documented in the HPI. ROS Other: All systems not noted in ROS Statement are negative. 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 Fatty liver. , states pain all over that comes and goes .,Type II DM, occasionally uses cane. History of Any Multi-Drug Resistant Organisms: None Reported Past Surgical History: Adenoidectomy, Bariatric Surgery, Cholecystectomy, Tonsillectomy Additional Past Surgical History / Comment(s): cataract w/ lens implants, R corneal transplant, R eye detached retina, uvulaectomy, nerve and muscle biopsy, lap band insertion and removal. Left knee arthroscopy Past Anesthesia/Blood Transfusion Reactions: Previous Problems w/ Anesthesia Additional Past Anesthesia/Blood Transfusion Reaction / Comment(s): states slow to awaken after anesthesia & hx severe headache post-op Past Psychological History: No Psychological Hx Reported Smoking Status: Never smoker Past Alcohol Use History: None Reported Past Drug Use History: None Reported - Past Family History Father Family Medical History: Coronary Artery Disease (CAD), Myocardial Infarction (DE) Additional Family Medical History / Comment(s): Father has had many coronary stents. Mother Family Medical History: Coronary Artery Disease (CAD), Myocardial Infarction (DE) General Exam Limitations: no limitations General appearance: alert, in no apparent distress Respiratory exam: Present: normal lung sounds bilaterally. Absent: respiratory distress, wheezes, rales, rhonchi, stridor Cardiovascular Exam: Present: regular rate, normal rhythm, normal heart sounds. Absent: systolic murmur, diastolic murmur, rubs, gallop, clicks GI/Abdominal exam: Present: soft, normal bowel sounds. Absent: distended, tenderness, guarding, rebound, rigid Extremities exam: Present: normal inspection, full ROM, normal capillary refill. Absent: tenderness, pedal edema, joint swelling, calf tenderness Back exam: Present: normal inspection, tenderness (Left flank) Neurological exam: Present: alert, oriented X3, CN II-XII intact Skin exam: Present: warm, dry, intact, normal color. Absent: rash Course Vital Signs 08/25/24 08:37 Temperature 98 F Pulse Rate 89 Respiratory 20 Rate Blood Pressure 171/104 O2 Sat by Pulse 98 Oximetry Medical Decision Making - Lab Data Result diagrams: 08/25/24 10:08/25/24 10: Lab Results 08/25/24 08/25/24 08/25/24 Range/Units 10:01 10:01 10:01 WBC 7.8 (3.8-10.6) k/uL RBC 5.50 (4.30-5.90) m/uL Hgb 15.3 (13.0-17.5) gm/dL Hct 46.0 (39.0-53.0) % MCV 83.7 (80.0-100.0) fL MCH 27.9 (25.0-35.0) pg MCHC 33.4 (31.0-37.0) g/dL RDW 13.1 (11.5-15.5) % Plt Count 214 (150-450) k/uL MPV 7.7 Neutrophils % 59 % Lymphocytes % 32 % Monocytes % 6 % Eosinophils % 1 % Basophils % 1 % Neutrophils # 4.6 (1.3-7.7) k/uL Lymphocytes # 2.5 (1.0-4.8) k/uL Monocytes # 0.4 (0-1.0) k/uL Eosinophils # 0.1 (0-0.7) k/uL Basophils # 0.0 (0-0.2) k/uL Sodium 136 L (137-145) mmol/L Potassium 4.8 (3.5-5.1) mmol/L Chloride 105 (98-107) mmol/L Carbon Dioxide 20 L (22-30) mmol/L Anion Gap 11 mmol/L BUN 18 (9-20) mg/dL Creatinine 0.91 (0.66-1.25) mg/dL Est GFR (CKD-EPI)AfAm >90 (>60 ml/min/1.73 sqM) Est GFR (CKD-EPI)NonAf >90 (>60 ml/min/1.73 sqM) Glucose 113 H (74-99) mg/dL Plasma Lactic Acid Ish 1.1 (0.7-2.0) mmol/L Calcium 9.4 (8.4-10.2) mg/dL Magnesium 1.8 (1.6-2.3) mg/dL Total Bilirubin 1.1 (0.2-1.3) mg/dL AST 34 (17-59) U/L ALT 34 (4-49) U/L Alkaline Phosphatase 70 (38-126) U/L Troponin I (0.000-0.034) ng/mL Total Protein 7.2 (6.3-8.2) g/dL Albumin 4.3 (3.5-5.0) g/dL Urine Color Urine Appearance (Clear) Urine pH (5.0-8.0) Ur Specific [place] (1.001-1.035) Urine Protein (Negative) Urine Glucose (UA) (Negative) Urine Ketones (Negative) Urine Blood (Negative) Urine Nitrite (Negative) Urine Bilirubin (Negative) Urine Urobilinogen (<2.0) mg/dL Ur Leukocyte Esterase (Negative) 08/25/24 08/25/24 Range/Units 10:01 10:09 WBC (3.8-10.6) k/uL RBC (4.30-5.90) m/uL Hgb (13.0-17.5) gm/dL Hct (39.0-53.0) % MCV (80.0-100.0) fL MCH (25.0-35.0) pg MCHC (31.0-37.0) g/dL RDW (11.5-15.5) % Plt Count (150-450) k/uL MPV Neutrophils % % Lymphocytes % % Monocytes % % Eosinophils % % Basophils % % Neutrophils # (1.3-7.7) k/uL Lymphocytes # (1.0-4.8) k/uL Monocytes # (0-1.0) k/uL Eosinophils # (0-0.7) k/uL Basophils # (0-0.2) k/uL Sodium (137-145) mmol/L Potassium (3.5-5.1) mmol/L Chloride (98-107) mmol/L Carbon Dioxide (22-30) mmol/L Anion Gap mmol/L BUN (9-20) mg/dL Creatinine (0.66-1.25) mg/dL Est GFR (CKD-EPI)AfAm (>60 ml/min/1.73 sqM) Est GFR (CKD-EPI)NonAf (>60 ml/min/1.73 sqM) Glucose (74-99) mg/dL Plasma Lactic Acid Ish (0.7-2.0) mmol/L Calcium (8.4-10.2) mg/dL Magnesium (1.6-2.3) mg/dL Total Bilirubin (0.2-1.3) mg/dL AST (17-59) U/L ALT (4-49) U/L Alkaline Phosphatase (38-126) U/L Troponin I <0.012 (0.000-0.034) ng/mL Total Protein (6.3-8.2) g/dL Albumin (3.5-5.0) g/dL Urine Color Colorless Urine Appearance Clear (Clear) Urine pH 5.5 (5.0-8.0) Ur Specific [place] 1.024 (1.001-1.035) Urine Protein Negative (Negative) Urine Glucose (UA) 4+ H (Negative) Urine Ketones Negative (Negative) Urine Blood Negative (Negative) Urine Nitrite Negative (Negative) Urine Bilirubin Negative (Negative) Urine Urobilinogen <2.0 (<2.0) mg/dL Ur Leukocyte Esterase Negative (Negative) - EKG Data -: EKG Interpreted by Me EKG Comments: EKG taken at 10: 00 showing a sinus rhythm. No ST segment elevations or depressions. No T wave inversions. Ventricular rate 83, HI interval 152, QRS duration 109, QT/QTc 365/405 Disposition Clinical Impression: Left flank pain Disposition: HOME SELF-CARE Condition: Stable Additional Instructions: I recommend [id number] ibuprofen and Tylenol for pain control outpatient. You may take Flexeril and use lidocaine patches as prescribed. Follow-up with PCP. Return to the ER for any new or worsening concerns. Prescriptions: Cyclobenzaprine [Flexeril] 10 mg PO TID PRN #15 tab PRN Reason: Muscle Spasm Lidocaine 4% Patch 1 patch TOPICAL DAILY #15 patch Is patient prescribed a controlled substance at d/c from ED?: No Referrals: Arleth Goetz MD [Primary Care Provider] - 1-2 days Time of Disposition: 12:56
[2024-08-25] MEDS: CYCLOBENZAPRINE 10 MG TAB PO STA (10:10)
[2024-08-25] MEDS: KETOROLAC 15 MG/ML 1 ML VIAL IVP STA (10:10)
[2024-08-25] MEDS: ONDANSETRON 4 MG/2 ML VIAL IVP STA (10:10)
[2024-08-25 10:22] LABS: Basophils % (A) 1 %; Eosinophils # (A) 0.1 k/uL (0-0.7); Eosinophils % (A) 1 %; HGB 15.3 gm/dL (13.0-17.5); Lymphocytes # (A) 2.5 k/uL (1.0-4.8); Lymphocytes % (A) 32 %; MCH 27.9 pg (25.0-35.0); MCHC 33.4 g/dL (31.0-37.0); MCV 83.7 fL (80.0-100.0); Mean Platelet Volume 7.7; Monocytes # (A) 0.4 k/uL (0-1.0); Monocytes % (A) 6 %; Neutrophils # (A) 4.6 k/uL (1.3-7.7); Neutrophils % (A) 59 %; Platelet Count 214 k/uL (150-450); RDW 13.1 % (11.5-15.5); WBC 7.8 k/uL (3.8-10.6)
[2024-08-25 10:38] LABS: Appearance,Urine Clear (Clear); Bilirubin,Urine Negative (Negative); Blood,Urine Negative (Negative); Color,Urine Colorless; Glucose,Urine (UA) 4+ (Negative); Ketones,Urine Negative (Negative); Leukocyte Esterase,Urine Negative (Negative); Nitrite,Urine Negative (Negative); PH, Urine 5.5 (5.0-8.0); Protein,Urine Negative (Negative); Specific Gravity,Urine 1.024 (1.001-1.035); Urobilinogen,Urine <2.0 mg/dL (<2.0)
[2024-08-25 10:39] LABS: ALT 34 U/L (4-49); AST 34 U/L (17-59); African American GFR (CKD) >90 (>60 ml/min/1.73 sqM); Albumin 4.3 g/dL (3.5-5.0); Alkaline Phosphatase 70 U/L (38-126); Anion Gap 11 mmol/L; Blood Urea Nitrogen 18 mg/dL (9-20); Calcium 9.4 mg/dL (8.4-10.2); Carbon Dioxide 20 mmol/L (22-30); Chloride 105 mmol/L (98-107); Glucose 113 mg/dL (74-99); Magnesium 1.8 mg/dL (1.6-2.3); Non-African American GFR(CKD) >90 (>60 ml/min/1.73 sqM); Potassium 4.8 mmol/L (3.5-5.1); Sodium 136 mmol/L (137-145); Total Bilirubin 1.1 mg/dL (0.2-1.3); Total Protein 7.2 g/dL (6.3-8.2)
[2024-08-25] MEDS: HYDROmorphone 1 MG/ML 1 ML SYRINGE IVP STA (11:38)
[2024-08-25] MEDS: METOCLOPRAMIDE 5 MG/ML 2 ML VIAL IVP STA (11:41)
--- NOTE | 2024-08-25 12:00 | CT ---
EXAMINATION TYPE: CT abdomen pelvis wo con DATE OF EXAM: 08/25/2024 11:39 AM COMPARISON: 12/30/2023 CLINICAL INDICATION: Male, 54 years old with history of l flank pain, LEFT FLANK PAIN TECHNIQUE: Axial images with sagittal coronal reformats. Examination of the solid and hollow viscera is limited given the lack of contrast. CT DLP: 1780.4 mGycm, Automated exposure control for dose reduction was used. FINDINGS: LUNG BASES: No evidence for nodule. No evidence for infiltrate. LIVER/GB: The gallbladder is surgically absent. No space-occupying hepatic lesion. PANCREAS: No pancreatic mass identified. No inflammatory process seen. SPLEEN: No evidence for splenomegaly. No intrasplenic lesions seen. ADRENALS: No adrenal nodules identified. No evidence for thickening. KIDNEYS: Probable left renal cortical cysts. No nephrolithiasis. No hydronephrosis. BOWEL: Appendix has a normal appearance. No evidence of bowel obstruction. No inflammatory process. D iverticulosis without diverticulitis. Lymph nodes: No evidence for adenopathy greater than 1 cm. Abdominal aorta: Atheromatous changes seen. No evidence for aneurysm. Genital organs: No significant abnormality. Other: No significant abnormality. IMPRESSION: NO SIGNIFICANT ABNORMALITY TO ACCOUNT FOR THE PATIENT'S SYMPTOMS. [facility], , 08/25/2024 11:57 AM
[2024-08-25] MEDS: LIDOCAINE 4% PATCH TOPICAL ONE (12:50)
[2024-08-25 13:02] VITALS: BP 122/81; PULSE 95; RESP 18
== END 2024-08-25 13:10 | disposition home or self-care (01) ==
LOC: EC 08:36
DX: R10.9 Unspecified abdominal pain (principal); Z91.041 Radiographic dye allergy status; Z91.048 Other nonmedicinal substance allergy status; Z88.8 Allergy status to other drugs, medicaments and biological substances
CPT/HCPCS: 36415; 93005; 80053; 83605; 83735; 84484; 85025; 81003; 74176; 99284; 96374; 96375; J2765; J2405; J1171; J1885